=== PATIENT | male | born 1935 | race Hispanic/Latino ===

== ENCOUNTER 2017-04-24 21:34 | Observation (INO) | payer MEDICARE, BC ==
[2017-04-24 22:04] LABS: BASO # 0.1 K/uL (0.0-0.2); BASO % 0.9 % (0.0-2.0); EOS # 0.1 K/uL (0.0-0.7); EOS % 1.7 % (0.0-4.0); HEMATOCRIT 40.4 % (35.0-51.0); LYMPH # 1.3 K/uL (1.0-4.3); LYMPH % 14.8 % (20.0-40.0); MEAN CORPUSCULAR HGB CONC 34.1 g/dL (33.0-37.0); MONO # 1.2 K/uL (0.0-0.8); MONO % 14.3 % (0.0-10.0); NRBC % 0.2 % (0.0-2.0); RED CELL DISTRIBUTION WIDTH 14.4 % (11.5-14.5); WHITE BLOOD COUNT 8.5 K/uL (4.8-10.8)
[2017-04-24 22:12] LABS: CHLORIDE 103 mmol/L (98-107)
[2017-04-24 22:13] LABS: POTASSIUM 3.7 mmol/L (3.6-5.2); SODIUM 141 mmol/L (132-148)
[2017-04-24 22:15] LABS: ALB/GLOB RATIO 1.2 (1.0-2.1); ALKALINE PHOSPHATASE 41 U/L (38-126); AST/SGOT 39 U/L (17-59); BILIRUBIN,TOTAL 0.8 mg/dL (0.2-1.3); BLOOD UREA NITROGEN 28 mg/dL (9-20); CARBON DIOXIDE 26 mmol/L (22-30); GFR AFRICAN-AMERICAN > 60; GLUCOSE,RANDOM 119 mg/dL (75-110)
[2017-04-24 22:16] LABS: ALT/SGPT 38 U/L (21-72); CALCIUM 8.7 mg/dl (8.6-10.4)
[2017-04-24 22:32] VITALS: O2SAT 96
--- NOTE | 2017-04-24 23:09 | C.PDOC ---
History Of Present Illness 81 year old male BIBA and cardioverted in the field for chest pain; he was noted to have a wide complex v-tach. Patient had a prior [place] in 1992 where he was found to be in v-tach and had multiple defibrillator firings; he was followed by Dr. Hernandez afterwards. After shock, patient returned to sinus rhythm and is currently asymptomatic at this moment. Time Seen by Provider: 04/24/17 21:42 Chief Complaint (Nursing): Chest Pain History Per: EMS History/Exam Limitations: no limitations Onset/Duration Of Symptoms: Hrs Current Symptoms Are (Timing): Still Present Modifying Factors: None Exacerbating Factors: None Alleviating Factors: None Recent travel outside of the [place]: No Additional History Per: Patient Past Medical History Reviewed: Historical Data, Nursing Documentation, Vital Signs Vital Signs: Last Vital Signs Temp 98.2 F 04/24/17 21:40 Pulse 70 04/24/17 22:27 Resp 22 04/24/17 22:27 BP 121/63 04/24/17 22:27 Pulse Ox 96 04/24/17 23:13 - Medical History PMH: Anemia, Arthritis, Atrial Fibrillation, CAD, Cardia Arrhythmia, CHF ( multiple hospitalizations, recent 05/2015), COPD, Emphysema, HTN, Hypercholesterolemia, Peripheral Edema Surgical History: Coronary Stent (Failed PCI of the totally occluded RCA), Endoscopy, Pacemaker - [facility] Procedures COLONOSCOPY (06/22/07) DRAINAGE OF RIGHT PLEURAL CAVITY, PERCUTANEOUS APPROACH (10/28/15) ENDO RECTUM POLYPECTOMY (12/27/14) ENDOSC POLYPECTOMY OF LG INTEST (02/07/05) ESOPHAGOGASTRODUODENOSCOPY [EGD] W/CLOSED BIOPSY (12/27/14) INJECT/INFUSE NEC (02/07/05) INSERTION OF INFUSION DEV INTO SUP VENA CAVA, PERC APPROACH (10/28/15) PACKED CELL TRANSFUSION (12/27/14) PEDICLE GRAFT/FLAP NOS (04/10/06) RADICAL EXCIS SKIN LES (04/10/06) THORACENTESIS (05/25/15) Family History: States: Unknown Family Hx - Social History Hx Tobacco Use: No Hx Alcohol Use: No Hx Substance Use: No - Immunization History Hx Tetanus Toxoid Vaccination: No Hx Influenza Vaccination: No Hx Pneumococcal Vaccination: No Review Of Systems Constitutional: Negative for: Fever, Chills Cardiovascular: Positive for: Chest Pain. Negative for: Palpitations Respiratory: Negative for: Shortness of Breath Gastrointestinal: Negative for: Nausea, Vomiting, Abdominal Pain, Diarrhea Neurological: Negative for: Weakness, Numbness Physical Exam - Physical Exam Appears: Non-toxic, No Acute Distress Skin: Normal Color, Warm, Dry Head: Atraumatic, Normacephalic Oral Mucosa: Moist Neck: Normal, Supple Chest: No Tenderness, Other (Defibrillator to left upper chest) Cardiovascular: Rhythm Regular, No Murmur Respiratory: Normal Breath Sounds, No Rales, No Rhonchi, No Wheezing Gastrointestinal/Abdominal: Soft, No Tenderness Neurological/Psych: Oriented x3, Normal Speech, Normal Cognition ED Course And Treatment - Laboratory Results Result Diagrams: 04/24/17 22:00 04/24/17 22:00 Lab Interpretation: Normal (dig 0.9) ECG: Interpreted By Me ECG Rhythm: V Paced ECG Interpretation: Normal O2 Sat by Pulse Oximetry: 96 Pulse Ox Interpretation: Normal - Radiology CXR: Interpreted by Me CXR Interpretation: Yes: Heart Size Progress Note: lopressor 50 PO. EKG, CXR, and urinalysis ordered. Reevaluation Time: 23:11 Reassessment Condition: Improved - Physician Consult Information Outcome Of Conversation: 0: d/w Dr. Luther- JUAN FRANCISCOD- ok to Tele Obs Medical Decision Making Medical Decision Making: recurrent VT not shocked/paced out of it by his implanted defib/pacer, but synchronous shocked by ALS with return of V-paced rhythem Disposition Doctor Will See Patient In The: Hospital Counseled Patient/Family Regarding: Studies Performed, Diagnosis - Disposition Disposition: HOSPITALIZED Disposition Time: 23:12 Condition: GOOD - Clinical Impression Clinical Impression: Chest pain, Ventricular tachycardia - Scribe Statement The provider has reviewed the documentation as recorded by the Michelleibbeverly Ramirez All medical record entries made by the Michelleibbeverly were at my direction and personally dictated by me. I have reviewed the chart and agree that the record accurately reflects my personal performance of the history, physical exam, medical decision making, and the department course for this patient. I have also personally directed, reviewed, and agree with the discharge instructions and disposition.
[2017-04-25] MEDS ORDERED: Digoxin 125 mcg (0.125 mg) Tab PO SCH (00:35)
[2017-04-25 01:18] VITALS: PULSE 70
[2017-04-25 02:47] VITALS: RESP 20
[2017-04-25 06:02] LABS: RBC URINE 5 /hpf (0-3); URINE BACTERIA MANY (<OCC); URINE BILIRUBIN NEGATIVE (NEGATIVE); URINE BLOOD NEGATIVE (NEGATIVE); URINE COLOR Yellow (YELLOW); URINE GLUCOSE (UA) NORMAL (Normal); URINE KETONE NEGATIVE (NEGATIVE); URINE LEUKOCYTE ESTERASE 2+ Leu/uL (Negative); URINE PROTEIN NEGATIVE (NEGATIVE); URINE UROBILINOGEN NORMAL mg/dL (0.2-1.0); WBC URINE 48 /hpf (0-5)
[2017-04-25 06:11] LABS: CHLORIDE 105 mmol/L (98-107); POTASSIUM 3.6 mmol/L (3.6-5.2); SODIUM 143 mmol/L (132-148)
[2017-04-25 06:14] LABS: BLOOD UREA NITROGEN 27 mg/dL (9-20); CARBON DIOXIDE 27 mmol/L (22-30); GFR AFRICAN-AMERICAN > 60
[2017-04-25 06:15] LABS: CALCIUM 8.6 mg/dl (8.6-10.4); GLUCOSE,RANDOM 162 mg/dL (75-110); MAGNESIUM 2.1 mg/dL (1.6-2.3)
[2017-04-25 08:13] VITALS: TEMP 97.6
--- NOTE | 2017-04-25 09:08 | RAD ---
HISTORY: SOB COMPARISON: Chest x-ray performed 11/09/15 TECHNIQUE: Chest, one view. FINDINGS: Examination limited by habitus. LUNGS: Right basilar atelectasis or infiltrate. Mild pulmonary venous congestion. Bilateral hilar prominence. Please note that chest x-ray has limited sensitivity for the detection of pulmonary masses. PLEURA: Small right pleural effusion. No definite pneumothorax . CARDIOVASCULAR: Cardiomegaly. Left-sided AICD. Atherosclerotic calcifications of the aorta. OSSEOUS STRUCTURES: Degenerative changes. VISUALIZED UPPER ABDOMEN: Unremarkable. OTHER FINDINGS: None. IMPRESSION: Right basilar atelectasis/ infiltrate and small right pleural effusion. Mild pulmonary venous congestion. Bilateral hilar prominence. Cardiomegaly. AICD. Study has been marked for PA review.
[2017-04-25] MEDS ORDERED: Sacubitril/Valsartan 24-26mg Tab PO SCH (10:00)
[2017-04-25] MEDS ORDERED: Pantoprazole 40 mg EC Tab PO SCH (10:00)
[2017-04-25] MEDS ORDERED: PITAVASTATIN CALCIUM 4 MG PO SCH ×2 (10:00)
[2017-04-25] MEDS ORDERED: SYMBICORT INH SCH (10:00)
[2017-04-25] MEDS ORDERED: EPLERENONE 25 MG PO SCH ×2 (10:00)
[2017-04-25] MEDS ORDERED: Potassium Chloride 20 mEq ER Tab PO SCH (10:00)
[2017-04-25 16:31] VITALS: BP 121/73
--- NOTE | 2017-04-25 18:08 | CP.PCM.HP ---
History of Present Illness - History of Present Illness History of Present Illness: 81 yo male suddenly felt palpitation, chest pain, shortness of breath and profuse sweating while watching TV. His called 911. The EMS found in a ventricular tachycadia 20 minutes later and cardioverted him. His cardiac rhythm reverted to a paced rhythm, and he became asymptomatic. His TNI's are negative x 2. His CXR did not show any acute infiltrate. He is known to have an ischemic cardiomyopathy, with a Hx of ventricular tachycardia, and atrial flutter. He had a failed PCI of the RCA and a failed cardioversion for an atrial flutter in the past. A new ICD was inserted by Dr Hernandez in 11/2015, and was checked by him last month. Present on Admission - Present on Admission Any Indicators Present on Admission: No Review of Systems - Cardiovascular Cardiovascular: Chest Pain, Diaphoresis, Dyspnea, Palpitations - Respiratory Respiratory: Dyspnea Past Patient History - Infectious Disease Hx of Infectious Diseases: None - Tetanus Immunizations Tetanus Immunization: Unknown - Past Medical History & Family History Past Medical History?: Yes - Past Social History Smoking Status: Former Smoker Alcohol: Occasional Drugs: Denies Home Situation {Lives}: With Family Domestic Violence: Negative - CARDIAC Hx Atrial Fibrillation: Yes Hx Cardia Arrhythmia: Yes Hx Congestive Heart Failure: Yes (multiple hospitalizations.) Hx Hypercholesterolemia: Yes Hx Hypertension: Yes Hx Pacemaker: Yes Hx Peripheral Edema: Yes - PULMONARY Hx Chronic Obstructive Pulmonary Disease (COPD): Yes Hx Emphysema: Yes - NEUROLOGICAL Hx Neurological Disorder: No Hx Dizziness: Yes Hx Syncope: Yes - HEENT Hx HEENT Problems: Yes Hx Glaucoma: Yes - RENAL Hx Chronic Kidney Disease: No - ENDOCRINE/METABOLIC Hx Endocrine Disorders: No - HEMATOLOGICAL/ONCOLOGICAL Hx Anemia: Yes Hx Blood Transfusions: Yes (2014) - INTEGUMENTARY Hx Dermatological Problems: No - MUSCULOSKELETAL/RHEUMATOLOGICAL Hx Falls: No - GASTROINTESTINAL Hx Gastrointestinal Disorders: Yes (Colonic polyps.) - GENITOURINARY/GYNECOLOGICAL Hx Genitourinary Disorders: No - PSYCHIATRIC Hx Substance Use: No - SURGICAL HISTORY Hx Cardiac Catheterization: Yes (2 or 3 times.) Hx Coronary Stent: Yes (Failed PCI of the totally occluded RCA) Other/Comment: Pacemaker. - ANESTHESIA Hx Anesthesia: Yes Hx Anesthesia Reactions: No Hx Malignant Hyperthermia: No Has any member of the family had a problem w/ anesthesia?: No Meds Allergies/Adverse Reactions: Allergies Allergy/AdvReac Type Severity Reaction Status Date / Time No Known Allergies Allergy Verified 10/28/15 17:23 Physical Exam - Constitutional Appears: No Acute Distress - Head Exam Head Exam: NORMAL INSPECTION - Eye Exam Eye Exam: Normal appearance - ENT Exam ENT Exam: Normal Exam - Neck Exam Neck exam: Positive for: Normal Inspection - Respiratory Exam Respiratory Exam: Clear to Auscultation Bilateral, NORMAL BREATHING PATTERN - Cardiovascular Exam Cardiovascular Exam: REGULAR RHYTHM, Systolic Murmur - GI/Abdominal Exam GI & Abdominal Exam: Normal Bowel Sounds, Soft - Rectal Exam Rectal Exam: Deferred - Extremities Exam Extremities exam: Positive for: normal inspection - Back Exam Back exam: NORMAL INSPECTION - Neurological Exam Neurological exam: Alert, CN II-XII Intact, Normal Gait, Oriented x3 - Psychiatric Exam Psychiatric exam: Anxious - Skin Skin Exam: Dry, Intact, Normal Color, Warm Results - Vital Signs Recent Vital Signs: Last Vital Signs Temp 97.6 F 04/25/17 15:00 Pulse 74 04/25/17 15:00 Resp 20 04/25/17 15:00 BP 121/73 04/25/17 15:00 Pulse Ox 96 04/25/17 15:00 - Labs Result Diagrams: 04/24/17 22:00 04/25/17 05:29 Labs: Laboratory Results - last 24 hr 04/25/17 04/25/17 05:29 05:31 Sodium 143 Potassium 3.6 Chloride 105 Carbon Dioxide 27 Anion Gap 15 BUN 27 H Creatinine 1.0 Est GFR ( Amer) > 60 Est GFR (Non-Af Amer) > 60 Random Glucose 162 H Calcium 8.6 Magnesium 2.1 Total Creatine Kinase 31 L CK-MB (Mass) 1.34 Troponin I, Quant 0.0300 Urine Color Yellow Urine Clarity Hazy Urine pH 5.0 Ur Specific Guy 1.018 Urine Protein Negative Urine Glucose (UA) Normal Urine Ketones Negative Urine Blood Negative Urine Nitrate Negative Urine Bilirubin Negative Urine Urobilinogen Normal Ur Leukocyte Esterase 2+ H Urine WBC (Auto) 48 H Urine RBC (Auto) 5 H Ur Squamous Epith Cells 9 H Urine Bacteria Many H Urine Yeast (Budding) Few H Assessment & Plan (1) Ventricular tachycardia Assessment and Plan: Now in a paced rhythm after cardioversion by the EMS.To increase Sotalol to 80 mg PO q 12 h. Status: Acute (2) Chest pain Assessment and Plan: TNI's x2 are normal. Status: Acute (3) Automatic implantable cardiac defibrillator in situ Assessment and Plan: To have [employer] ([employer])check the ICD before discharge home. Status: Acute Decision To Admit - Pt Status Changed To: Hospital Disposition Of: Observation - . Bed Request Type: Telemetry Admitting Physician: Filippo Luther
[2017-04-25 19:41] VITALS: PULSE 90
[2017-04-25] MEDS ORDERED: Fluticasone-Salmeterol 250-50mcg Diskus INH SCH (20:00)
[2017-04-26] MEDS ORDERED: Pantoprazole 40 mg EC Tab PO SCH (10:00)
--- NOTE | 2017-04-28 17:49 | CARD ---
APPROVED REPORT EKG Measurement Heart [id number] <Conclusion> Ventricular-paced rhythm Abnormal ECG
== END 2017-04-25 20:45 | disposition home or self-care (01) ==
LOC: C.ER 21:34 → C.6T 23:13 → C.9E 23:13
PROVIDERS: ADMIT Internal Medicine Cardiovascular Disease; ATTEND Internal Medicine Cardiovascular Disease
DX: R07.89 Other chest pain (principal); I11.0 Hypertensive heart disease with heart failure; I47.2 Ventricular tachycardia; I50.9 Heart failure, unspecified; J44.9 Chronic obstructive pulmonary disease, unspecified; Z87.891 Personal history of nicotine dependence; Z95.810 Presence of automatic (implantable) cardiac defibrillator
CPT/HCPCS: 36415; 71010; 80048; 80053; 80162; 81001; 83735; 83880; 84484; 85025; 93005; 99285; G0378

== ENCOUNTER 2017-05-06 13:00 | Inpatient (IN) | payer MEDICARE, BC ==
[2017-05-06 13:01] VITALS: PULSE 70
--- NOTE | 2017-05-06 14:01 | RAD ---
HISTORY: chest pain COMPARISON: Chest x-ray performed 04/24/17 TECHNIQUE: Chest, one view. FINDINGS: Examination limited by habitus. LUNGS: Bilateral hilar prominence. Small right sided pleural effusion. Right basilar atelectasis/infiltrate. Mild residual pulmonary venous congestion. No definite pneumothorax. CARDIOVASCULAR: Cardiomegaly. Atherosclerotic calcifications of the aortic knob. Left-sided AICD. Evidence of abandoned pacer wires on the right. OSSEOUS STRUCTURES: Degenerative changes. VISUALIZED UPPER ABDOMEN: Unremarkable. OTHER FINDINGS: None. IMPRESSION: Bilateral hilar prominence. Small right sided pleural effusion. Right basilar atelectasis/infiltrate. Mild residual pulmonary venous congestion. Cardiomegaly. Atherosclerotic calcifications of the aortic knob. Left-sided AICD. Evidence of abandoned pacer wires on the right.
[2017-05-06 14:02] LABS: BASO % 0.6 % (0.0-2.0); CHLORIDE 97 mmol/L (98-107); EOS # 0.1 K/uL (0.0-0.7); EOS % 1.3 % (0.0-4.0); HEMATOCRIT 40.1 % (35.0-51.0); LYMPH % 11.2 % (20.0-40.0); MEAN CELL VOLUME 93.8 fL (80.0-94.0); MEAN CORPUSCULAR HEMOGLOBIN 31.7 pg (27.0-31.0); MEAN CORPUSCULAR HGB CONC 33.7 g/dL (33.0-37.0); MEAN PLATELET VOLUME 8.9 fL (7.2-11.7); MONO # 0.8 K/uL (0.0-0.8); POTASSIUM 4.5 mmol/L (3.6-5.2); RED CELL DISTRIBUTION WIDTH 14.1 % (11.5-14.5); SODIUM 140 mmol/L (132-148); WHITE BLOOD COUNT 8.8 K/uL (4.8-10.8)
[2017-05-06 14:05] LABS: ALB/GLOB RATIO 1.3 (1.0-2.1); ALKALINE PHOSPHATASE 47 U/L (38-126); ALT/SGPT 31 U/L (21-72); AST/SGOT 20 U/L (17-59); BILIRUBIN,TOTAL 0.8 mg/dL (0.2-1.3); BLOOD UREA NITROGEN 23 mg/dL (9-20); CARBON DIOXIDE 28 mmol/L (22-30); GFR AFRICAN-AMERICAN > 60; GLUCOSE,RANDOM 123 mg/dL (75-110); TOTAL PROTEIN 6.7 g/dL (6.3-8.3)
--- NOTE | 2017-05-06 14:14 | C.PDOC ---
History Of Present Illness 81 y/o male presents to ED who states his AICD went off a few times over the last couple days. Patient states that prior to these episodes, he wound feel nausea, fluttering in his chest, and then feel the shock. He notes he had prior episodes with similar preceding symptoms with no following shock. Currently, patient without any complaints. Patient notified Dr. Hernandez, who prompted ER visit. Time Seen by Provider: 05/06/17 13:13 Chief Complaint (Nursing): Medical Clearance History Per: Patient History/Exam Limitations: no limitations Onset/Duration Of Symptoms: Days Current Symptoms Are (Timing): Still Present Recent travel outside of the [place]: No Past Medical History Reviewed: Historical Data, Nursing Documentation, Vital Signs Vital Signs: Last Vital Signs Temp 98 F 05/06/17 20:29 Pulse 70 05/06/17 20:29 Resp 20 05/06/17 20:29 BP 121/76 05/06/17 20:29 Pulse Ox 96 05/06/17 20:29 - Medical History PMH: Anemia, Arthritis, Atrial Fibrillation, CAD, Cardia Arrhythmia, CHF, Colonic Polyps, COPD, Emphysema, HTN, Hypercholesterolemia, Peripheral Edema Surgical History: Coronary Stent (x1), Endoscopy, Pacemaker - [facility] Procedures COLONOSCOPY (06/22/07) DRAINAGE OF RIGHT PLEURAL CAVITY, PERCUTANEOUS APPROACH (10/28/15) ENDO RECTUM POLYPECTOMY (12/27/14) ENDOSC POLYPECTOMY OF LG INTEST (02/07/05) ESOPHAGOGASTRODUODENOSCOPY [EGD] W/CLOSED BIOPSY (12/27/14) INJECT/INFUSE NEC (02/07/05) INSERTION OF INFUSION DEV INTO SUP VENA CAVA, PERC APPROACH (10/28/15) PACKED CELL TRANSFUSION (12/27/14) PEDICLE GRAFT/FLAP NOS (04/10/06) RADICAL EXCIS SKIN LES (04/10/06) THORACENTESIS (05/25/15) Family History: States: Unknown Family Hx - Social History Hx Tobacco Use: No Hx Alcohol Use: No Hx Substance Use: No - Immunization History Hx Tetanus Toxoid Vaccination: No Hx Influenza Vaccination: No Hx Pneumococcal Vaccination: No Review Of Systems Except As Marked, All Systems Reviewed And Found Negative. Constitutional: Negative for: Fever, Chills Cardiovascular: Positive for: Chest Pain. Negative for: Palpitations, Orthopnea Respiratory: Negative for: Shortness of Breath, Wheezing Gastrointestinal: Positive for: Nausea. Negative for: Vomiting Skin: Negative for: Rash Neurological: Negative for: Weakness, Numbness, Headache, Dizziness Physical Exam - Physical Exam Appears: Non-toxic, No Acute Distress Skin: Normal Color, Warm, Dry Head: Atraumatic, Normacephalic Oral Mucosa: Moist Chest: Symmetrical Cardiovascular: Rhythm Regular Respiratory: Normal Breath Sounds, No Rales, No Rhonchi, No Wheezing Gastrointestinal/Abdominal: Soft, No Tenderness, No Guarding, No Rebound Back: Normal Inspection Extremity: Normal ROM, Capillary Refill (< 2 sec.) Neurological/Psych: Oriented x3, Normal Speech, Normal Cognition ED Course And Treatment - Laboratory Results Result Diagrams: 05/06/17 13:48 05/06/17 13:48 ECG: Interpreted By Me ECG Rhythm: V Paced Interpretation Of ECG: ventricularly paced at 70 bpm, with PVC's. O2 Sat by Pulse Oximetry: 96 (RA) Pulse Ox Interpretation: Normal Progress Note: EKG, bloodwork, labs ordered and reviewed. Disposition - Disposition Disposition: HOSPITALIZED Disposition Time: 14:40 Condition: FAIR - Clinical Impression Clinical Impression: AICD ELECTRICAL DISCHARGE PALPITATION - Scribe Statement The provider has reviewed the documentation as recorded by the Michelleibbeverly Avila Provider Attestation: All medical record entries made by the Michelleibbeverly were at my direction and personally dictated by me. I have reviewed the chart and agree that the record accurately reflects my personal performance of the history, physical exam, medical decision making, and the department course for this patient. I have also personally directed, reviewed, and agree with the discharge instructions and disposition.
[2017-05-06 14:38] LABS: THYROID STIMULATING HORMONE 1.09 mIU/L (0.46-4.68)
--- NOTE | 2017-05-06 17:57 | CP.PCM.HP ---
History of Present Illness - History of Present Illness History of Present Illness: PGY1 Note for Dr. Ny CC: Feeling a sensation in his chest PMD: Dr. Filippo Luther HPI: Patient is a 81 year old man with a MH of a [employer] and MT complaining of a "weird" sensation in his chest. The incident began today while in the mens room. He states that the sensation is indescribable and feels as if his defibrillator is about to shock him but doesnt. The sensation does not radiate from the chest. No aggravating or alleviating factors noted. Currently he feels fine and the sensation has dissipated. He had a similar even on April 24 which resulted in him being sent to [facility] where he was defibrillator. Patient states the defibrillator has gone off yesterday and Thursday. ROS: * General: Denies fever/chills/ diaphoresis/ weakness/recent travel/sick contacts. Positive for dizziness/lightheadedness/ 5 pounds intentional weight loss * HEENT: Denies MCDER[place]OTT/changes in vision/ changes in hearing * Cardio: Denies CP * Pulm: Denies SOB/cough/ * GI: Denies dysuria/frequency * :Denies N/V/D/C/ pain * MSK: Denies back pain * Derm: Denies rash * Heme: History of a 3 unit blood transfusion in 2004 PMH: * Pacemaker * MT 1992 * BPH PSH * Pacemaker placement * Stent placement x1 in 2010 * Multiple lipoma removals * Cataract removal x2 * Family Hx * Dad=DM * Mom=CVA SH: * Denies tobacco, EtOH, illicit drug use. * Lives with and son. 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 * Independent in his ADLs Meds: * Eloquis 2.5 BID * Dig 0.125 QD * Lasix 20 mg QD * Losarten 25mg QD * Statin 4mg QD * Crestor 20mg QD * Sodalol 160mg BID * Intresto 24/26 QD * Tamsulosin 0.4 QD * Eplerenone 25 QD * Finasteride 25 QD Allergies: NDKA Code: FULL CODE Present on Admission - Present on Admission Any Indicators Present on Admission: No History of DVT/PE: No History of Uncontrolled Diabetes: No Urinary Catheter: No Decubitus Ulcer Present: No History Surgical Site Infection Following: None Review of Systems - Constitutional Constitutional: As Per HPI - EENT Eyes: As Per HPI Ears: As Per HPI Nose/Mouth/Throat: As Per HPI - Cardiovascular Cardiovascular: As Per HPI - Respiratory Respiratory: As Per HPI - Gastrointestinal Gastrointestinal: As Per HPI - Genitourinary Genitourinary: As Per HPI - Reproductive: Male Reproductive:Male: As Per HPI - Musculoskeletal Musculoskeletal: As Per HPI - Integumentary Integumentary: As Per HPI - Neurological Neurological: As Per HPI - Psychiatric Psychiatric: As Per HPI - Endocrine Endocrine: As Per HPI - Hematologic/Lymphatic Hematologic: As Per HPI Past Patient History - Infectious Disease Hx of Infectious Diseases: None - Tetanus Immunizations Tetanus Immunization: Unknown - Past Medical History & Family History Past Medical History?: Yes - Past Social History Smoking Status: Former Smoker - CARDIAC Hx Atrial Fibrillation: Yes Hx Cardia Arrhythmia: Yes Hx Congestive Heart Failure: Yes Hx Hypercholesterolemia: Yes Hx Hypertension: Yes Hx Pacemaker: Yes Hx Peripheral Edema: Yes - PULMONARY Hx Chronic Obstructive Pulmonary Disease (COPD): Yes Hx Emphysema: Yes - NEUROLOGICAL Hx Neurological Disorder: Yes Hx Dizziness: Yes Hx Syncope: Yes - HEENT Hx HEENT Problems: Yes Hx Glaucoma: Yes - ENDOCRINE/METABOLIC Hx Endocrine Disorders: No - HEMATOLOGICAL/ONCOLOGICAL Hx Anemia: Yes - INTEGUMENTARY Hx Dermatological Problems: No - MUSCULOSKELETAL/RHEUMATOLOGICAL Hx Arthritis: Yes - GASTROINTESTINAL Hx Gastrointestinal Disorders: Yes - GENITOURINARY/GYNECOLOGICAL Hx Genitourinary Disorders: No - PSYCHIATRIC Hx Substance Use: No - SURGICAL HISTORY Hx Coronary Stent: Yes (x1) - ANESTHESIA Hx Anesthesia: Yes Hx Anesthesia Reactions: No Hx Malignant Hyperthermia: No Meds Allergies/Adverse Reactions: Allergies Allergy/AdvReac Type Severity Reaction Status Date / Time No Known Allergies Allergy Verified 10/28/15 17:23 Physical Exam - Constitutional Appears: Well, Non-toxic, No Acute Distress - Head Exam Head Exam: ATRAUMATIC, NORMAL INSPECTION, NORMOCEPHALIC - Eye Exam Eye Exam: EOMI - ENT Exam ENT Exam: Mucous Membranes Moist - Respiratory Exam Respiratory Exam: Decreased Breath Sounds (bilaterally), NORMAL BREATHING PATTERN. absent: Rales, Rhonchi, Wheezes, Stridor - Cardiovascular Exam Cardiovascular Exam: REGULAR RHYTHM, RRR. absent: Bradycardia, Tachycardia, Gallop, Rubs, Systolic Murmur Additional comments: diminished heart sounds - GI/Abdominal Exam GI & Abdominal Exam: Normal Bowel Sounds, Soft. absent: Distended, Tenderness - Extremities Exam Extremities exam: Negative for: joint swelling, pedal edema, tenderness - Neurological Exam Neurological exam: Alert, Oriented x3 - Psychiatric Exam Psychiatric exam: Normal Affect, Normal Mood - Skin Skin Exam: Dry, Intact, Normal Color, Warm Results - Vital Signs Recent Vital Signs: Last Vital Signs Temp 97.5 F L 05/06/17 17:28 Pulse 69 05/06/17 17:28 Resp 22 05/06/17 17:28 BP 110/54 L 05/06/17 17:28 Pulse Ox 96 05/06/17 17:28 - Labs Result Diagrams: 05/06/17 13:48 05/06/17 13:48 Assessment & Plan - Assessment and Plan (Free Text) Assessment: Possible Arrythmia * Cardio (Patrice) - F/U reccs * Tele * Interrogate pacemaker * Monitor electrolytes CAD * Cardio (Patrice) - F/U reccs * F/U Echo * GERMAINE * First trop negative * No evidence of ischemia on first EKG * Eloquis 2.5 BID * Dig 0.125 QD * Lasix 20 mg QD * Losarten 25mg QD * Crestor 20mg QD * Sodalol 160mg BID * Entresto 24/26 QD * Eplerenone 25 QD BPH * Finasteride 25 QD * Tamsulosin 0.4 QD PPX * No DVT PPX needed because on Eliquis * Pepcid 20 PO BID - Date & Time Date: 05/06/17 Time: 18:00 Decision To Admit - Pt Status Changed To: Hospital Disposition Of: Inpatient - Admit Certification Admit to Inpatient:: After my assessment, the patient will require hospitalization for at least two midnights. This is because of the severity of symptoms shown, intensity of services needed, and/or the medical risk in this patient being treated as an outpatient. - InPatient: Physician Admission Certification:: . - . Bed Request Type: Telemetry Admitting Physician: Eldon Ny
[2017-05-06] MEDS ORDERED: Digoxin 125 mcg (0.125 mg) Tab PO SCH (18:35)
[2017-05-06] MEDS: Enoxaparin 60 mg Syringe SC SCH (22:37)
--- NOTE | 2017-05-06 23:13 | CP.PCM.CON ---
History of Present Illness - History of Present Illness History of Present Illness: Patient seen and evaluated C/O uneasy feeling in chest Received a shock from AICD yesterday H/O if ischemic CMP and A Fib For cath tomorrow D/W Patient Orders written CC: Feeling a sensation in his chest HPI: Patient is a 81 year old man with a MH of a [employer] and [place] complaining of a "weird" sensation in his chest. The incident began today while in the mens room. He states that the sensation is indescribable and feels as if his defibrillator is about to shock him but doesnt. The sensation does not radiate from the chest. No aggravating or alleviating factors noted. Currently he feels fine and the sensation has dissipated. He had a similar even on April 24 which resulted in him being sent to [facility] where he was defibrillator. Patient states the defibrillator has gone off yesterday and Thursday. ROS: * General: Denies fever/chills/ diaphoresis/ weakness/recent travel/sick contacts. Positive for dizziness/lightheadedness/ 5 pounds intentional weight loss * HEENT: Denies M[place]OTT/changes in vision/ changes in hearing * Cardio: Denies CP * Pulm: Denies SOB/cough/ * GI: Denies dysuria/frequency * :Denies N/V/D/C/ pain * MSK: Denies back pain * Derm: Denies rash * Heme: History of a 3 unit blood transfusion in 2004 PMH: * Pacemaker * [place] 1992 * BPH PSH * Pacemaker placement * Stent placement x1 in 2010 * Multiple lipoma removals * Cataract removal x2 * Family Hx * Dad=DM * Mom=CVA SH: * Denies tobacco, EtOH, illicit drug use. * Lives with and son. 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 * Independent in his ADLs Meds: * Eloquis 2.5 BID * Dig 0.125 QD * Lasix 20 mg QD * Losarten 25mg QD * Statin 4mg QD * Crestor 20mg QD * Sodalol 160mg BID * Intresto 24/26 QD * Tamsulosin 0.4 QD * Eplerenone 25 QD * Finasteride 25 QD Allergies: NDKA Code: FULL CODE Physical Exam - Constitutional Appears: Well, Non-toxic, No Acute Distress - Head Exam Head Exam: ATRAUMATIC, NORMAL INSPECTION, NORMOCEPHALIC - Eye Exam Eye Exam: EOMI - ENT Exam ENT Exam: Mucous Membranes Moist - Respiratory Exam Respiratory Exam: Decreased Breath Sounds (bilaterally), NORMAL BREATHING PATTERN. absent: Rales, Rhonchi, Wheezes, Stridor - Cardiovascular Exam Cardiovascular Exam: REGULAR RHYTHM, RRR. absent: Bradycardia, Tachycardia, Gallop, Rubs, Systolic Murmur Additional comments: diminished heart sounds - GI/Abdominal Exam GI & Abdominal Exam: Normal Bowel Sounds, Soft. absent: Distended, Tenderness - Extremities Exam Extremities exam: Negative for: joint swelling, pedal edema, tenderness - Neurological Exam Neurological exam: Alert, Oriented x3 - Psychiatric Exam Psychiatric exam: Normal Affect, Normal Mood - Skin Skin Exam: Dry, Intact, Normal Color, Warm Past Patient History - Infectious Disease Hx of Infectious Diseases: None - Tetanus Immunizations Tetanus Immunization: Unknown - Past Medical History & Family History Past Medical History?: Yes - Past Social History Smoking Status: Former Smoker - CARDIAC Hx Atrial Fibrillation: Yes Hx Cardia Arrhythmia: Yes Hx Congestive Heart Failure: Yes Hx Hypercholesterolemia: Yes Hx Hypertension: Yes Hx Pacemaker: Yes Hx Peripheral Edema: Yes - PULMONARY Hx Chronic Obstructive Pulmonary Disease (COPD): Yes Hx Emphysema: Yes - NEUROLOGICAL Hx Neurological Disorder: Yes Hx Dizziness: Yes Hx Syncope: Yes - HEENT Hx HEENT Problems: Yes Hx Glaucoma: Yes - ENDOCRINE/METABOLIC Hx Endocrine Disorders: No - HEMATOLOGICAL/ONCOLOGICAL Hx Anemia: Yes - INTEGUMENTARY Hx Dermatological Problems: No - MUSCULOSKELETAL/RHEUMATOLOGICAL Hx Arthritis: Yes - GASTROINTESTINAL Hx Gastrointestinal Disorders: Yes - GENITOURINARY/GYNECOLOGICAL Hx Genitourinary Disorders: No - PSYCHIATRIC Hx Substance Use: No - SURGICAL HISTORY Hx Coronary Stent: Yes (x1) - ANESTHESIA Hx Anesthesia: Yes Hx Anesthesia Reactions: No Hx Malignant Hyperthermia: No Meds Allergies/Adverse Reactions: Allergies Allergy/AdvReac Type Severity Reaction Status Date / Time No Known Allergies Allergy Verified 10/28/15 17:23 - Medications Medications: Current Medications Acetaminophen (Tylenol 325mg Tab) 650 mg PO Q6 PRN PRN Reason: Fever >100.4 F Alprazolam (Xanax) 0.25 mg PO TID PRN PRN Reason: Anxiety Stop: 05/13/17 20:21 Aspirin (Ecotrin) 81 mg PO DAILY [facility] Bisoprolol Fumarate (Zebeta) 5 mg PO Q12 [facility] Last Admin: 05/06/17 22:38 Dose: 5 mg Enoxaparin Sodium (Lovenox) 60 mg SC Q12 [facility] Last Admin: 05/06/17 22:37 Dose: 60 mg Famotidine (Pepcid) 20 mg PO DAILY [facility] Finasteride (Proscar) 5 mg PO DAILY [facility] Finasteride (Proscar) 5 mg PO DAILY [facility] Last Admin: 05/06/17 20:23 Dose: 5 mg Furosemide (Lasix) 20 mg PO BID [facility] Ondansetron HCl (Zofran Inj) 4 mg IVP Q6 PRN PRN Reason: Nausea/Vomiting Pneumococcal Polyvalent Vaccine (Pneumovax 23 Vaccine) 0.5 ml IM .ONCE ONE Stop: 05/08/17 19:26 Rosuvastatin Calcium (Crestor) 20 mg PO HS [facility] Last Admin: 05/06/17 22:38 Dose: 20 mg Sacubitril/Valsartan (Entresto 24 Mg-26 Mg) 1 tab PO DAILY [facility] Sotalol HCl (Betapace) 160 mg PO BID [facility] Last Admin: 05/06/17 20:24 Dose: 160 mg Spironolactone (Aldactone) 25 mg PO DAILY [facility] Tamsulosin HCl (Flomax) 0.4 mg PO DAILY [facility] Zolpidem Tartrate (Ambien) 5 mg PO HS PRN PRN Reason: Insomnia Last Admin: 05/06/17 22:38 Dose: 5 mg Results - Vital Signs Recent Vital Signs: Last Vital Signs Temp 97.7 F 05/06/17 22:35 Pulse 70 05/06/17 22:35 Resp 20 05/06/17 22:35 BP 115/72 05/06/17 22:35 Pulse Ox 96 05/06/17 22:35 - Labs Result Diagrams: 05/08/17 06:19 05/08/17 06:19 Assessment & Plan - Assessment and Plan (Free Text) Assessment: Possible Arrythmia * Will interrogate BiVAICD * Tele * Monitor electrolytes CAD * Cardio (Patrice) - F/U reccs * For cath tomorrow * Eloquis 2.5 BID on Hold * Dig 0.125 QD * Lasix 20 mg QD * Losarten 25mg QD * Crestor 20mg QD * Sotalol 160mg BID * Entresto QD * Eplerenone 25 QD BPH * Finasteride 25 QD * Tamsulosin 0.4 QD PPX * No DVT PPX needed because on Eliquis * Pepcid 20 PO BID
[2017-05-07 05:56] LABS: BASO % 0.5 % (0.0-2.0); EOS # 0.2 K/uL (0.0-0.7); EOS % 1.8 % (0.0-4.0); HEMATOCRIT 38.9 % (35.0-51.0); LYMPH # 1.2 K/uL (1.0-4.3); LYMPH % 14.1 % (20.0-40.0); MEAN CELL VOLUME 94.2 fL (80.0-94.0); MEAN CORPUSCULAR HEMOGLOBIN 31.6 pg (27.0-31.0); MEAN CORPUSCULAR HGB CONC 33.6 g/dL (33.0-37.0); MONO # 0.9 K/uL (0.0-0.8); MONO % 10.6 % (0.0-10.0); NRBC % 0.1 % (0.0-2.0); RED CELL DISTRIBUTION WIDTH 14.3 % (11.5-14.5); WHITE BLOOD COUNT 8.5 K/uL (4.8-10.8)
[2017-05-07 06:02] LABS: INR 1.2
[2017-05-07 06:04] LABS: RBC URINE 7 /hpf (0-3); URINE BACTERIA OCC (<OCC); URINE BILIRUBIN NEGATIVE (NEGATIVE); URINE BLOOD NEGATIVE (NEGATIVE); URINE COLOR Yellow (YELLOW); URINE GLUCOSE (UA) NORMAL (Normal); URINE KETONE NEGATIVE (NEGATIVE); URINE LEUKOCYTE ESTERASE 2+ Leu/uL (Negative); URINE PROTEIN NEGATIVE (NEGATIVE); URINE UROBILINOGEN NORMAL mg/dL (0.2-1.0); WBC URINE 39 /hpf (0-5)
[2017-05-07 06:05] LABS: CHLORIDE 100 mmol/L (98-107); POTASSIUM 4.1 mmol/L (3.6-5.2); SODIUM 142 mmol/L (132-148)
[2017-05-07 06:07] LABS: BILIRUBIN,TOTAL 0.6 mg/dL (0.2-1.3); GFR AFRICAN-AMERICAN > 60
[2017-05-07 06:08] LABS: ALB/GLOB RATIO 1.2 (1.0-2.1); ALKALINE PHOSPHATASE 44 U/L (38-126); ALT/SGPT 33 U/L (21-72); AST/SGOT 16 U/L (17-59); BLOOD UREA NITROGEN 24 mg/dL (9-20); CALCIUM 8.7 mg/dl (8.6-10.4); CARBON DIOXIDE 29 mmol/L (22-30); GLUCOSE,RANDOM 97 mg/dL (75-110); TOTAL PROTEIN 6.3 g/dL (6.3-8.3)
[2017-05-07] MEDS ORDERED: Midazolam 2 MG/2 ML VIAL ONE (07:37)
[2017-05-07] MEDS ORDERED: Lidocaine 2% Inj (20ml) ONE (07:49)
[2017-05-07] MEDS ORDERED: Iodixanol 320 MG/ML 100 ML BOTTLE IV ONE (07:52)
[2017-05-07] MEDS ORDERED: Phenylephrine 10 mg/ml Inj ONE (08:53)
[2017-05-07] MEDS ORDERED: Sacubitril/Valsartan 24-26mg Tab PO SCH (10:00)
[2017-05-07] MEDS: Sacubitril/Valsartan 24-26mg Tab PO SCH (15:23)
[2017-05-07] MEDS: Enoxaparin 60 mg Syringe SC SCH ×2 (15:25→22:09)
--- NOTE | 2017-05-07 15:25 | CP.PCM.PN ---
Subjective - Date & Time of Evaluation Date of Evaluation: 05/07/17 Time of Evaluation: 14:00 - Subjective Subjective: Patient was seen and examined in ICU. Denies any chest pain, palpitation or shortness of breath. Objective - Vital Signs/Intake and Output Vital Signs (last 24 hours): Temp Pulse Resp BP Pulse Ox 98.0 F 70 17 115/54 L 96 05/07/17 04:00 05/07/17 10:30 05/07/17 10:30 05/07/17 10:21 05/07/17 10:30 Intake and Output: 05/07/17 05/07/17 06:59 18:59 Intake Total 300 467.2 Output Total 400 500 Balance -100 -32.8 - Medications Medications: Current Medications Acetaminophen (Tylenol 325mg Tab) 650 mg PO Q6 PRN PRN Reason: Fever >100.4 F Alprazolam (Xanax) 0.25 mg PO TID PRN PRN Reason: Anxiety Stop: 05/13/17 20:21 Aspirin (Ecotrin) 81 mg PO DAILY [facility] Bisoprolol Fumarate (Zebeta) 5 mg PO Q12 [facility] Last Admin: 05/06/17 22:38 Dose: 5 mg Enoxaparin Sodium (Lovenox) 60 mg SC Q12 [facility] Last Admin: 05/06/17 22:37 Dose: 60 mg Famotidine (Pepcid) 20 mg PO DAILY [facility] Finasteride (Proscar) 5 mg PO DAILY [facility] Finasteride (Proscar) 5 mg PO DAILY [facility] Last Admin: 05/06/17 20:23 Dose: 5 mg Furosemide (Lasix) 20 mg PO BID [facility] Last Admin: 05/07/17 15:21 Dose: Not Given Ondansetron HCl (Zofran Inj) 4 mg IVP Q6 PRN PRN Reason: Nausea/Vomiting Pneumococcal Polyvalent Vaccine (Pneumovax 23 Vaccine) 0.5 ml IM .ONCE ONE Stop: 05/08/17 19:26 Rosuvastatin Calcium (Crestor) 20 mg PO HS [facility] Last Admin: 05/06/17 22:38 Dose: 20 mg Sacubitril/Valsartan (Entresto 24 Mg-26 Mg) 1 tab PO DAILY [facility] Last Admin: 05/07/17 15:23 Dose: Not Given Sotalol HCl (Betapace) 160 mg PO BID [facility] Last Admin: 05/07/17 15:20 Dose: Not Given Spironolactone (Aldactone) 25 mg PO DAILY [facility] Last Admin: 05/07/17 15:21 Dose: Not Given Tamsulosin HCl (Flomax) 0.4 mg PO DAILY [facility] Zolpidem Tartrate (Ambien) 5 mg PO HS PRN PRN Reason: Insomnia Last Admin: 05/06/17 22:38 Dose: 5 mg - Labs Labs: 05/07/17 05:47 05/07/17 05:47 PT 13.9 SECONDS (9.7-12.2) H 05/07/17 05:47 INR 1.2 05/07/17 05:47 APTT 27 SECONDS (21-34) 05/07/17 05:47 - Head Exam Head Exam: ATRAUMATIC, NORMOCEPHALIC - Eye Exam Eye Exam: Normal appearance - ENT Exam ENT Exam: Mucous Membranes Moist - Neck Exam Neck Exam: Normal Inspection - Respiratory Exam Respiratory Exam: Clear to Ausculation Bilateral - Cardiovascular Exam Cardiovascular Exam: REGULAR RHYTHM, +S1, +S2 - Extremities Exam Extremities Exam: absent: Pedal Edema - Neurological Exam Neurological Exam: Alert, Awake Assessment and Plan (1) Arrhythmia Assessment & Plan: Patient possibly received a shock from AICD today earlier. Patient had cardiac cath today. Became hypotensive. Was transferred to ICU. Continue management as per ICU. Status: Acute (2) Automatic implantable cardiac defibrillator in situ Assessment & Plan: AICD to be checked today. Status: Acute (3) Atrial fibrillation Assessment & Plan: Continue anticoagulation. Currently patient is rate controlled.. Status: Chronic (4) Coronary artery disease Assessment & Plan: Continue current medical management. Status: Acute
[2017-05-07] MEDS ORDERED: Digoxin 125 mcg (0.125 mg) Tab PO SCH (18:00)
--- NOTE | 2017-05-07 18:29 | CP.PCM.CON ---
<YamilethJignesh kan Brenda - Last Filed: 05/07/17 18:12> History of Present Illness - History of Present Illness History of Present Illness: Patient is a 81 year old male with a PMHx of ichemic cardiomyopathy, AFib, who presented to the ED on 05/06 because he received a shock from his AICD. Today patient was s/p cardiac cath with Dr Ibrahim and while in the medical laboratory manager had a precipitous drop in BP with syncopal episode. Patient is now in ICU for monitoring. PMH: * Pacemaker * [place] 1992 * BPH PSH * Pacemaker placement * Stent placement x1 in 2010 * Multiple lipoma removals * Cataract removal x2 * Family Hx * Dad=DM * Mom=CVA SH: * Denies tobacco, EtOH, illicit drug use. * Lives with and son. 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 * Independent in his ADLs Home Meds: * Eloquis 2.5 BID * Dig 0.125 QD * Lasix 20 mg QD * Losarten 25mg QD * Statin 4mg QD * Crestor 20mg QD * Sodalol 160mg BID * Intresto / QD * Tamsulosin 0.4 QD * Eplerenone 25 QD * Finasteride 25 QD Review of Systems - Constitutional Constitutional: absent: Chills, Fever - Cardiovascular Cardiovascular: absent: Chest Pain, Diaphoresis - Respiratory Respiratory: absent: Cough, Dyspnea, Wheezing - Gastrointestinal Gastrointestinal: absent: Abdominal Pain, Diarrhea - Genitourinary Genitourinary: absent: Dysuria Past Patient History - Infectious Disease Hx of Infectious Diseases: None - Tetanus Immunizations Tetanus Immunization: Unknown - Past Medical History & Family History Past Medical History?: Yes - Past Social History Smoking Status: Former Smoker - CARDIAC Hx Atrial Fibrillation: Yes Hx Cardia Arrhythmia: Yes Hx Congestive Heart Failure: Yes Hx Hypercholesterolemia: Yes Hx Hypertension: Yes Hx Pacemaker: Yes Hx Peripheral Edema: Yes - PULMONARY Hx Chronic Obstructive Pulmonary Disease (COPD): Yes Hx Emphysema: Yes - NEUROLOGICAL Hx Neurological Disorder: Yes Hx Dizziness: Yes Hx Syncope: Yes - HEENT Hx HEENT Problems: Yes Hx Glaucoma: Yes - ENDOCRINE/METABOLIC Hx Endocrine Disorders: No - HEMATOLOGICAL/ONCOLOGICAL Hx Anemia: Yes - INTEGUMENTARY Hx Dermatological Problems: No - MUSCULOSKELETAL/RHEUMATOLOGICAL Hx Arthritis: Yes - GASTROINTESTINAL Hx Gastrointestinal Disorders: Yes - GENITOURINARY/GYNECOLOGICAL Hx Genitourinary Disorders: No - PSYCHIATRIC Hx Substance Use: No - SURGICAL HISTORY Hx Coronary Stent: Yes (x1) - ANESTHESIA Hx Anesthesia: Yes Hx Anesthesia Reactions: No Hx Malignant Hyperthermia: No Meds Allergies/Adverse Reactions: Allergies Allergy/AdvReac Type Severity Reaction Status Date / Time No Known Allergies Allergy Verified 10/28/15 17:23 - Medications Medications: Current Medications Acetaminophen (Tylenol 325mg Tab) 650 mg PO Q6 PRN PRN Reason: Fever >100.4 F Alprazolam (Xanax) 0.25 mg PO TID PRN PRN Reason: Anxiety Stop: 05/13/17 20:21 Aspirin (Ecotrin) 81 mg PO DAILY [facility] Last Admin: 05/07/17 17:05 Dose: 81 mg Bisoprolol Fumarate (Zebeta) 5 mg PO Q12 [facility] Last Admin: 05/07/17 15:26 Dose: Not Given Enoxaparin Sodium (Lovenox) 60 mg SC Q12 [facility] Last Admin: 05/07/17 15:25 Dose: Not Given Famotidine (Pepcid) 20 mg PO DAILY [facility] Last Admin: 05/07/17 17:05 Dose: 20 mg Finasteride (Proscar) 5 mg PO DAILY [facility] Last Admin: 05/07/17 15:26 Dose: Not Given Finasteride (Proscar) 5 mg PO DAILY [facility] Last Admin: 05/07/17 15:27 Dose: Not Given Furosemide (Lasix) 20 mg PO BID [facility] Last Admin: 05/07/17 15:21 Dose: Not Given Ondansetron HCl (Zofran Inj) 4 mg IVP Q6 PRN PRN Reason: Nausea/Vomiting Pneumococcal Polyvalent Vaccine (Pneumovax 23 Vaccine) 0.5 ml IM .ONCE ONE Stop: 05/08/17 19:26 Rosuvastatin Calcium (Crestor) 20 mg PO HS [facility] Last Admin: 05/06/17 22:38 Dose: 20 mg Sacubitril/Valsartan (Entresto 24 Mg-26 Mg) 1 tab PO DAILY [facility] Last Admin: 05/07/17 15:23 Dose: Not Given Sotalol HCl (Betapace) 160 mg PO BID [facility] Last Admin: 05/07/17 15:20 Dose: Not Given Spironolactone (Aldactone) 25 mg PO DAILY [facility] Last Admin: 05/07/17 15:21 Dose: Not Given Tamsulosin HCl (Flomax) 0.4 mg PO DAILY [facility] Last Admin: 05/07/17 17:05 Dose: 0.4 mg Zolpidem Tartrate (Ambien) 5 mg PO HS PRN PRN Reason: Insomnia Last Admin: 05/06/17 22:38 Dose: 5 mg Physical Exam - Constitutional Appears: Well - Head Exam Head Exam: ATRAUMATIC - Eye Exam Eye Exam: EOMI - ENT Exam ENT Exam: Mucous Membranes Moist - Respiratory Exam Respiratory Exam: Clear to Auscultation Bilateral, NORMAL BREATHING PATTERN - Cardiovascular Exam Cardiovascular Exam: REGULAR RHYTHM, +S1, +S2 - GI/Abdominal Exam GI & Abdominal Exam: Normal Bowel Sounds, Soft. absent: Tenderness - Extremities Exam Extremities exam: Positive for: normal inspection, pedal pulses present. Negative for: pedal edema - Skin Skin Exam: Dry, Intact, Normal Color, Warm Results - Vital Signs Recent Vital Signs: Last Vital Signs Temp 98.0 F 05/07/17 04:00 Pulse 70 05/07/17 10:30 Resp 17 05/07/17 10:30 BP 115/54 L 05/07/17 10:21 Pulse Ox 96 05/07/17 10:30 - Labs Result Diagrams: 05/07/17 05:47 05/07/17 05:47 Labs: Laboratory Results - last 24 hr 05/06/17 05/07/17 05/07/17 23:03 05:47 05:47 WBC 8.5 RBC 4.13 L Hgb 13.1 Hct 38.9 MCV 94.2 H MCH 31.6 H MCHC 33.6 RDW 14.3 Plt Count 129 L D MPV 9.0 Neut % (Auto) 73.0 Lymph % (Auto) 14.1 L [place] % (Auto) 10.6 H Eos % (Auto) 1.8 Baso % (Auto) 0.5 Neut # 6.2 Lymph # 1.2 [place] # 0.9 H Eos # 0.2 Baso # 0.0 PT INR APTT Sodium 142 Potassium 4.1 Chloride 100 Carbon Dioxide 29 Anion Gap 17 BUN 24 H Creatinine 1.0 Est GFR ( Amer) > 60 Est GFR (Non-Af Amer) > 60 Random Glucose 97 Hemoglobin A1c Calcium 8.7 Total Bilirubin 0.6 AST 16 L ALT 33 Alkaline Phosphatase 44 Total Creatine Kinase 26 L 22 L CK-MB (Mass) 0.53 0.48 Troponin I, Quant < 0.0120 < 0.0120 Total Protein 6.3 Albumin 3.4 L Globulin 2.9 Albumin/Globulin Ratio 1.2 Urine Color Urine Clarity Urine pH Ur Specific [place] Urine Protein Urine Glucose (UA) Urine Ketones Urine Blood Urine Nitrate Urine Bilirubin Urine Urobilinogen Ur Leukocyte Esterase Urine WBC (Auto) Urine RBC (Auto) Ur Squamous Epith Cells Amorphous Sediment Urine Bacteria 05/07/17 05/07/17 05/07/17 05:47 05:47 05:48 WBC RBC Hgb Hct MCV MCH MCHC RDW Plt Count MPV Neut % (Auto) Lymph % (Auto) [place] % (Auto) Eos % (Auto) Baso % (Auto) Neut # Lymph # [place] # Eos # Baso # PT 13.9 H INR 1.2 APTT 27 Sodium Potassium Chloride Carbon Dioxide Anion Gap BUN Creatinine Est GFR ( Amer) Est GFR (Non-Af Amer) Random Glucose Hemoglobin A1c 6.2 Calcium Total Bilirubin AST ALT Alkaline Phosphatase Total Creatine Kinase CK-MB (Mass) Troponin I, Quant Total Protein Albumin Globulin Albumin/Globulin Ratio Urine Color Yellow Urine Clarity Hazy Urine pH 5.0 Ur Specific [place] 1.018 Urine Protein Negative Urine Glucose (UA) Normal Urine Ketones Negative Urine Blood Negative Urine Nitrate Negative Urine Bilirubin Negative Urine Urobilinogen Normal Ur Leukocyte Esterase 2+ H Urine WBC (Auto) 39 H Urine RBC (Auto) 7 H Ur Squamous Epith Cells 3 Amorphous Sediment Few H Urine Bacteria Occ H Assessment & Plan - Assessment and Plan (Free Text) Assessment: Neuro: - zolpidem 5mg po hs prn - alprazolam 0.25mg po tid prn - ondansetron 4mg iv q6 prn Pulmonary: - breathing on room air CV: Hx of ischemic cardiomyopathy, AFib, NH, AICD - monitor BP - aspirin 81mg po daily - bisprolol 5mg po q12 - enoxaparin 60mg sc q12 - furosemide 20mg po bid - rosuvastatin 20mg po hs - sacubitril/valsartan 24mg/26mg 1 tab po daily - sotalol 160mg po bid - spironolactone 25mg po daily Endocrine: GI: - famotidine 20mg po daily Heme: - H/H wnl Renal: Hx of BPH - BUN/Cr 24/1.0 - tamsulosin 0.4mg po daily MSK: ID: - clinically asymptomatic - WBC normal value - afebrile - UA: (+) leukocyte esterase, (+) wbc, (+) rbc, (+) bacteria Prophylaxis: - DVT: enoxaparin 60mg sc q12 - GI: famotidine 20mg po daily - Diet: heart healthy <Ruben Hartley - Last Filed: 05/08/17 01:52> Meds - Medications Medications: Current Medications Acetaminophen (Tylenol 325mg Tab) 650 mg PO Q6 PRN PRN Reason: Fever >100.4 F Alprazolam (Xanax) 0.25 mg PO TID PRN PRN Reason: Anxiety Stop: 05/13/17 20:21 Last Admin: 05/07/17 19:54 Dose: 0.25 mg Aspirin (Ecotrin) 81 mg PO DAILY [facility] Last Admin: 05/07/17 17:05 Dose: 81 mg Bisoprolol Fumarate (Zebeta) 5 mg PO Q12 [facility] Last Admin: 05/07/17 22:10 Dose: Not Given Enoxaparin Sodium (Lovenox) 60 mg SC Q12 [facility] Last Admin: 05/07/17 22:09 Dose: 60 mg Famotidine (Pepcid) 20 mg PO DAILY [facility] Last Admin: 05/07/17 17:05 Dose: 20 mg Finasteride (Proscar) 5 mg PO DAILY [facility] Last Admin: 05/07/17 15:26 Dose: Not Given Finasteride (Proscar) 5 mg PO DAILY [facility] Last Admin: 05/07/17 15:27 Dose: Not Given Furosemide (Lasix) 20 mg PO BID [facility] Last Admin: 05/07/17 15:21 Dose: Not Given Ondansetron HCl (Zofran Inj) 4 mg IVP Q6 PRN PRN Reason: Nausea/Vomiting Pneumococcal Polyvalent Vaccine (Pneumovax 23 Vaccine) 0.5 ml IM .ONCE ONE Stop: 05/08/17 19:26 Rosuvastatin Calcium (Crestor) 20 mg PO HS [facility] Last Admin: 05/07/17 22:11 Dose: 20 mg Sacubitril/Valsartan (Entresto 24 Mg-26 Mg) 1 tab PO DAILY [facility] Last Admin: 05/07/17 15:23 Dose: Not Given Sotalol HCl (Betapace) 160 mg PO BID [facility] Last Admin: 05/07/17 19:28 Dose: Not Given Spironolactone (Aldactone) 25 mg PO DAILY [facility] Last Admin: 05/07/17 15:21 Dose: Not Given Tamsulosin HCl (Flomax) 0.4 mg PO DAILY [facility] Last Admin: 05/07/17 17:05 Dose: 0.4 mg Zolpidem Tartrate (Ambien) 5 mg PO HS PRN PRN Reason: Insomnia Last Admin: 05/07/17 23:02 Dose: 5 mg Results - Vital Signs Recent Vital Signs: Last Vital Signs Temp 97.9 F 05/08/17 00:00 Pulse 71 05/08/17 01:30 Resp 19 05/08/17 01:30 BP 113/52 L 05/08/17 00:50 Pulse Ox 95 05/08/17 01:30 - Labs Result Diagrams: 05/07/17 05:47 05/07/17 05:47 Labs: Laboratory Results - last 24 hr 05/07/17 05/07/17 05/07/17 05:47 05:47 05:47 WBC 8.5 RBC 4.13 L Hgb 13.1 Hct 38.9 MCV 94.2 H MCH 31.6 H MCHC 33.6 RDW 14.3 Plt Count 129 L D MPV 9.0 Neut % (Auto) 73.0 Lymph % (Auto) 14.1 L [place] % (Auto) 10.6 H Eos % (Auto) 1.8 Baso % (Auto) 0.5 Neut # 6.2 Lymph # 1.2 [place] # 0.9 H Eos # 0.2 Baso # 0.0 PT INR APTT Sodium 142 Potassium 4.1 Chloride 100 Carbon Dioxide 29 Anion Gap 17 BUN 24 H Creatinine 1.0 Est GFR ( Amer) > 60 Est GFR (Non-Af Amer) > 60 Random Glucose 97 Hemoglobin A1c 6.2 Calcium 8.7 Total Bilirubin 0.6 AST 16 L ALT 33 Alkaline Phosphatase 44 Total Creatine Kinase 22 L CK-MB (Mass) 0.48 Troponin I, Quant < 0.0120 Total Protein 6.3 Albumin 3.4 L Globulin 2.9 Albumin/Globulin Ratio 1.2 Urine Color Urine Clarity Urine pH Ur Specific [place] Urine Protein Urine Glucose (UA) Urine Ketones Urine Blood Urine Nitrate Urine Bilirubin Urine Urobilinogen Ur Leukocyte Esterase Urine WBC (Auto) Urine RBC (Auto) Ur Squamous Epith Cells Amorphous Sediment Urine Bacteria 05/07/17 05/07/17 05:47 05:48 WBC RBC Hgb Hct MCV MCH MCHC RDW Plt Count MPV Neut % (Auto) Lymph % (Auto) [place] % (Auto) Eos % (Auto) Baso % (Auto) Neut # Lymph # [place] # Eos # Baso # PT 13.9 H INR 1.2 APTT 27 Sodium Potassium Chloride Carbon Dioxide Anion Gap BUN Creatinine Est GFR ( Amer) Est GFR (Non-Af Amer) Random Glucose Hemoglobin A1c Calcium Total Bilirubin AST ALT Alkaline Phosphatase Total Creatine Kinase CK-MB (Mass) Troponin I, Quant Total Protein Albumin Globulin Albumin/Globulin Ratio Urine Color Yellow Urine Clarity Hazy Urine pH 5.0 Ur Specific [place] 1.018 Urine Protein Negative Urine Glucose (UA) Normal Urine Ketones Negative Urine Blood Negative Urine Nitrate Negative Urine Bilirubin Negative Urine Urobilinogen Normal Ur Leukocyte Esterase 2+ H Urine WBC (Auto) 39 H Urine RBC (Auto) 7 H Ur Squamous Epith Cells 3 Amorphous Sediment Few H Urine Bacteria Occ H Attending/Attestation - Attestation I have personally seen and examined this patient.: Yes I have fully participated in the care of the patient.: Yes I have reviewed all pertinent clinical information: Yes Notes (Text): 05/08/17 01:47 Except as below Patient taken from medical laboratory manager post procedure due to drop in hr and bp needing levophed shortly. h/o CAD, s/p PCI in lad, ischemic cardiomyopathy, s/p biv aicd , aicd firing a day prior, dm, htn, h/o paf on eliquis. Cath report d/w Dr. Ibrahim , RCA occlusion, diagonal occlusion, patent LAD stent, presence of collateral not needing PCI. Hypotension probably due to combination of ischemic cardiomyopathy, sedation. ICU monitoring, hemoglobin, start anticoagulation in the evening if hgb stable, AICD interrogation.
--- NOTE | 2017-05-07 21:34 | CARD ---
APPROVED REPORT EXAM: Two-dimensional and M-mode echocardiogram with Doppler and color Doppler. Other Information Quality : GoodRhythm : NSR INDICATION Dyspnea Atrial Fibrillation Congestive Heart Failure COPD Palpitations RISK FACTORS Hyperlipidemia 2D DIMENSIONS IVSd1.2 (0.7-1.1cm)LVDd6.3 (3.9-5.9cm) PWd1.1 (0.7-1.1cm)LVDs5.2 (2.5-4.0cm) FS (%) 17.1 %LVEF (%)35.0 (>50%) M-Mode DIMENSIONS Left Atrium (MM)5.16 (2.5-4.0cm)Aortic Root3.69 (2.2-3.7cm) Aortic Cusp Exc.1.62 (1.5-2.0cm) Mitral Valve E/A ratio0.0 TDI E/Lateral E'0.0E/Medial E'0.0 Tricuspid Valve TR Peak [id number] Peak [id number] LEFT VENTRICLE The left ventricle is mildly dilated. There is normal left ventricular wall thickness. The left ventricular function is moderately reduced. The left ventricular ejection fraction [id number]%. The inferior wall is hypokinetic. the inferozpex is akinetic, the inferolateral wall is akinetic. The left ventricular diastolic function is indterminate. No left ventricle thrombus noted on this study. There is no ventricular septal defect visualized. There is no left ventricular aneurysm. There is no mass noted in the left ventricle. RIGHT VENTRICLE The right ventricle is normal size. There is normal right ventricular wall thickness. The right ventricular systolic function is normal. A ppm is noted. ATRIA The left atrial index is markedly increased The right atrium size is normal. The interatrial septum is intact with no evidence for an atrial septal defect. AORTIC VALVE The aortic valve is normal in structure and function. Mild aortic regurgitation is present. There is no aortic valvular stenosis. There is no aortic valvular vegetation. MITRAL VALVE The mitral valve is normal in structure and function. There is no evidence of mitral valve prolapse. There is no mitral valve stenosis. There is moderate linferior and laterally directed mitral regurgitation TRICUSPID VALVE The tricuspid valve is normal in structure and function. There is no tricuspid valve regurgitation noted. There is no tricuspid valve prolapse or vegetation. There is no tricuspid valve stenosis. PULMONIC VALVE The pulmonary valve is normal in structure and function. There is no pulmonic valvular regurgitation. There is no pulmonic valvular stenosis. GREAT VESSELS The aortic root is normal in size. The ascending aorta is normal in size. The pulmonary artery is normal. The IVC is normal in size and collapses >50% with inspiration. PERICARDIAL EFFUSION The pericardium appears normal. There is no pleural effusion. <Conclusion> Moderately reduced LV EF, with akinetic inferoapical and inferolateral wall motion. The inferiorr wall was hypokinetic. Moderate inferior and laterally directed mitral regurgitation. Mild aortic regirgitatio. Markedly increased left atrial volume index.
--- NOTE | 2017-05-07 22:29 | CP.PCM.PN ---
Subjective - Date & Time of Evaluation Date of Evaluation: 05/07/17 Time of Evaluation: 11:10 - Subjective Subjective: Patient s/p Cardiac cath 1. L Main: Patent 2. LAD: Prior stent patent, Diag 60% 3. L Cx: Patent 4. RCA: [employer]ENTICE 100%, Left to Right collaterals 5. EF 30% No further intervention needed. Medical theray Patient developed hypotension needing Livophed drip ICU monitoring for a day Objective - Vital Signs/Intake and Output Vital Signs (last 24 hours): Temp Pulse Resp BP Pulse Ox 97.4 F L 70 29 H 116/51 L 98 05/07/17 20:00 05/07/17 21:10 05/07/17 21:10 05/07/17 20:50 05/07/17 21:10 Intake and Output: 05/07/17 05/08/17 18:59 06:59 Intake Total 1107.2 170 Output Total 840 100 Balance 267.2 70 - Medications Medications: Current Medications Acetaminophen (Tylenol 325mg Tab) 650 mg PO Q6 PRN PRN Reason: Fever >100.4 F Alprazolam (Xanax) 0.25 mg PO TID PRN PRN Reason: Anxiety Stop: 05/13/17 20:21 Last Admin: 05/07/17 19:54 Dose: 0.25 mg Aspirin (Ecotrin) 81 mg PO DAILY [facility] Last Admin: 05/07/17 17:05 Dose: 81 mg Bisoprolol Fumarate (Zebeta) 5 mg PO Q12 [facility] Last Admin: 05/07/17 22:10 Dose: Not Given Enoxaparin Sodium (Lovenox) 60 mg SC Q12 [facility] Last Admin: 05/07/17 22:09 Dose: 60 mg Famotidine (Pepcid) 20 mg PO DAILY [facility] Last Admin: 05/07/17 17:05 Dose: 20 mg Finasteride (Proscar) 5 mg PO DAILY [facility] Last Admin: 05/07/17 15:26 Dose: Not Given Finasteride (Proscar) 5 mg PO DAILY [facility] Last Admin: 05/07/17 15:27 Dose: Not Given Furosemide (Lasix) 20 mg PO BID [facility] Last Admin: 05/07/17 15:21 Dose: Not Given Ondansetron HCl (Zofran Inj) 4 mg IVP Q6 PRN PRN Reason: Nausea/Vomiting Pneumococcal Polyvalent Vaccine (Pneumovax 23 Vaccine) 0.5 ml IM .ONCE ONE Stop: 05/08/17 19:26 Rosuvastatin Calcium (Crestor) 20 mg PO HS [facility] Last Admin: 05/07/17 22:11 Dose: 20 mg Sacubitril/Valsartan (Entresto 24 Mg-26 Mg) 1 tab PO DAILY [facility] Last Admin: 05/07/17 15:23 Dose: Not Given Sotalol HCl (Betapace) 160 mg PO BID [facility] Last Admin: 05/07/17 19:28 Dose: Not Given Spironolactone (Aldactone) 25 mg PO DAILY [facility] Last Admin: 05/07/17 15:21 Dose: Not Given Tamsulosin HCl (Flomax) 0.4 mg PO DAILY [facility] Last Admin: 05/07/17 17:05 Dose: 0.4 mg Zolpidem Tartrate (Ambien) 5 mg PO HS PRN PRN Reason: Insomnia Last Admin: 05/06/17 22:38 Dose: 5 mg - Labs Labs: 05/07/17 05:47 05/07/17 05:47 PT 13.9 SECONDS (9.7-12.2) H 05/07/17 05:47 INR 1.2 05/07/17 05:47 APTT 27 SECONDS (21-34) 05/07/17 05:47
[2017-05-08 06:35] LABS: BASO % 0.5 % (0.0-2.0); EOS # 0.1 K/uL (0.0-0.7); EOS % 1.7 % (0.0-4.0); HEMATOCRIT 36.2 % (35.0-51.0); LYMPH % 11.5 % (20.0-40.0); MEAN CELL VOLUME 93.9 fL (80.0-94.0); MEAN CORPUSCULAR HGB CONC 34.1 g/dL (33.0-37.0); MEAN PLATELET VOLUME 8.9 fL (7.2-11.7); MONO # 0.9 K/uL (0.0-0.8); MONO % 10.8 % (0.0-10.0); WHITE BLOOD COUNT 8.5 K/uL (4.8-10.8)
[2017-05-08 06:48] LABS: CHLORIDE 101 mmol/L (98-107)
[2017-05-08 06:49] LABS: POTASSIUM 4.8 mmol/L (3.6-5.2); SODIUM 139 mmol/L (132-148)
[2017-05-08 06:51] LABS: ALB/GLOB RATIO 1.2 (1.0-2.1); ALKALINE PHOSPHATASE 46 U/L (38-126); AST/SGOT 21 U/L (17-59); BILIRUBIN,TOTAL 0.9 mg/dL (0.2-1.3); CARBON DIOXIDE 27 mmol/L (22-30); GFR AFRICAN-AMERICAN > 60; TOTAL PROTEIN 6.2 g/dL (6.3-8.3)
[2017-05-08 06:52] LABS: ALT/SGPT 27 U/L (21-72); BLOOD UREA NITROGEN 25 mg/dL (9-20); CALCIUM 8.8 mg/dl (8.6-10.4); GLUCOSE,RANDOM 102 mg/dL (75-110)
[2017-05-08] MEDS: Sacubitril/Valsartan 24-26mg Tab PO SCH (09:31)
[2017-05-08] MEDS: Enoxaparin 60 mg Syringe SC SCH (09:33)
[2017-05-08 09:54] VITALS: PULSE 70
[2017-05-08 12:52] VITALS: BP 115/51; RESP 17; O2SAT 98
[2017-05-08 12:53] VITALS: TEMP 98
--- NOTE | 2017-05-08 13:30 | CP.PCM.PN ---
Subjective - Date & Time of Evaluation Date of Evaluation: 05/08/17 Time of Evaluation: 15:00 - Subjective Subjective: Patient was seen and examined at bedside. Patient has no new complaints Denies any chest pain or palpitation. Objective - Vital Signs/Intake and Output Vital Signs (last 24 hours): Temp Pulse Resp BP Pulse Ox 98 F 70 17 115/51 L 98 05/08/17 12:00 05/08/17 12:40 05/08/17 12:40 05/08/17 12:17 05/08/17 12:40 Intake and Output: 05/08/17 05/08/17 06:59 18:59 Intake Total 260 590 Output Total 400 100 Balance -140 490 - Medications Medications: Current Medications Acetaminophen (Tylenol 325mg Tab) 650 mg PO Q6 PRN PRN Reason: Fever >100.4 F Alprazolam (Xanax) 0.25 mg PO TID PRN PRN Reason: Anxiety Stop: 05/13/17 20:21 Last Admin: 05/07/17 19:54 Dose: 0.25 mg Aspirin (Ecotrin) 81 mg PO DAILY [facility] Last Admin: 05/08/17 09:30 Dose: 81 mg Bisoprolol Fumarate (Zebeta) 5 mg PO Q12 [facility] Last Admin: 05/08/17 09:29 Dose: 5 mg Enoxaparin Sodium (Lovenox) 60 mg SC Q12 [facility] Last Admin: 05/08/17 09:33 Dose: 60 mg Famotidine (Pepcid) 20 mg PO DAILY [facility] Last Admin: 05/08/17 09:30 Dose: 20 mg Finasteride (Proscar) 5 mg PO DAILY [facility] Last Admin: 05/08/17 09:33 Dose: 5 mg Furosemide (Lasix) 20 mg PO BID [facility] Last Admin: 05/08/17 09:30 Dose: 20 mg Ondansetron HCl (Zofran Inj) 4 mg IVP Q6 PRN PRN Reason: Nausea/Vomiting Pneumococcal Polyvalent Vaccine (Pneumovax 23 Vaccine) 0.5 ml IM .ONCE ONE Stop: 05/08/17 19:26 Rosuvastatin Calcium (Crestor) 20 mg PO HS [facility] Last Admin: 05/07/17 22:11 Dose: 20 mg Sacubitril/Valsartan (Entresto 24 Mg-26 Mg) 1 tab PO DAILY [facility] Last Admin: 05/08/17 09:31 Dose: 1 tab Sotalol HCl (Betapace) 160 mg PO BID [facility] Last Admin: 05/08/17 09:30 Dose: 160 mg Spironolactone (Aldactone) 25 mg PO DAILY [facility] Last Admin: 05/08/17 09:33 Dose: 25 mg Tamsulosin HCl (Flomax) 0.4 mg PO DAILY [facility] Last Admin: 05/08/17 09:32 Dose: 0.4 mg Zolpidem Tartrate (Ambien) 5 mg PO HS PRN PRN Reason: Insomnia Last Admin: 05/07/17 23:02 Dose: 5 mg - Labs Labs: 05/08/17 06:19 05/08/17 06:19 PT 13.9 SECONDS (9.7-12.2) H 05/07/17 05:47 INR 1.2 05/07/17 05:47 APTT 27 SECONDS (21-34) 05/07/17 05:47 - Head Exam Head Exam: ATRAUMATIC, NORMOCEPHALIC - Eye Exam Eye Exam: Normal appearance - ENT Exam ENT Exam: Mucous Membranes Moist - Neck Exam Neck Exam: Normal Inspection - Respiratory Exam Respiratory Exam: Clear to Ausculation Bilateral - Cardiovascular Exam Cardiovascular Exam: REGULAR RHYTHM, +S1, +S2 - GI/Abdominal Exam GI & Abdominal Exam: Soft. absent: Tenderness - Extremities Exam Extremities Exam: absent: Pedal Edema Assessment and Plan (1) Arrhythmia Status: Acute (2) Automatic implantable cardiac defibrillator in situ Status: Acute (3) Atrial fibrillation Status: Chronic (4) Coronary artery disease Status: Acute - Assessment and Plan (Free Text) Plan: AICD interrogated. Patient had cardiac catheterization No intervention suggested Patient is clear for discharge by cardiology We'll discharge the patient home
--- NOTE | 2017-05-08 16:39 | CP.PCM.DIS ---
Provider - Provider Date of Admission: 05/06/17 14:43 Attending physician: Tyler Noble MD Hospital Course - Lab Results Lab Results: Most Recent Lab Values WBC 8.5 K/uL (4.8-10.8) 05/08/17 06:19 RBC 3.85 Mil/uL (4.40-5.90) L 05/08/17 06:19 Hgb 12.3 g/dL (12.0-18.0) 05/08/17 06:19 Hct 36.2 % (35.0-51.0) 05/08/17 06:19 MCV 93.9 fL (80.0-94.0) 05/08/17 06:19 MCH 32.0 pg (27.0-31.0) H 05/08/17 06:19 MCHC 34.1 g/dL (33.0-37.0) 05/08/17 06:19 RDW 14.0 % (11.5-14.5) 05/08/17 06:19 Plt Count 134 K/uL (130-400) 05/08/17 06:19 MPV 8.9 fL (7.2-11.7) 05/08/17 06:19 Neut % (Auto) 75.5 % (50.0-75.0) H 05/08/17 06:19 Lymph % (Auto) 11.5 % (20.0-40.0) L 05/08/17 06:19 [place] % (Auto) 10.8 % (0.0-10.0) H 05/08/17 06:19 Eos % (Auto) 1.7 % (0.0-4.0) 05/08/17 06:19 Baso % (Auto) 0.5 % (0.0-2.0) 05/08/17 06:19 Neut # 6.4 K/uL (1.8-7.0) 05/08/17 06:19 Lymph # 1.0 K/uL (1.0-4.3) 05/08/17 06:19 [place] # 0.9 K/uL (0.0-0.8) H 05/08/17 06:19 Eos # 0.1 K/uL (0.0-0.7) 05/08/17 06:19 Baso # 0.0 K/uL (0.0-0.2) 05/08/17 06:19 PT 13.9 SECONDS (9.7-12.2) H 05/07/17 05:47 INR 1.2 05/07/17 05:47 APTT 27 SECONDS (21-34) 05/07/17 05:47 Sodium 139 mmol/L (132-148) 05/08/17 06:19 Potassium 4.8 mmol/L (3.6-5.2) 05/08/17 06:19 Chloride 101 mmol/L (98-107) 05/08/17 06:19 Carbon Dioxide 27 mmol/L (22-30) 05/08/17 06:19 Anion Gap 17 (10-20) 05/08/17 06:19 BUN 25 mg/dL (9-20) H 05/08/17 06:19 Creatinine 1.2 MG/DL (0.8-1.5) 05/08/17 06:19 Est GFR ( Amer) > 60 05/08/17 06:19 Est GFR (Non-Af Amer) 58 05/08/17 06:19 Random Glucose 102 mg/dL (75-110) 05/08/17 06:19 Hemoglobin A1c 6.2 % (4.2-6.5) 05/07/17 05:47 Calcium 8.8 mg/dl (8.6-10.4) 05/08/17 06:19 Total Bilirubin 0.9 mg/dL (0.2-1.3) 05/08/17 06:19 AST 21 U/L (17-59) 05/08/17 06:19 ALT 27 U/L (21-72) 05/08/17 06:19 Alkaline Phosphatase 46 U/L (38-126) 05/08/17 06:19 Total Creatine Kinase 22 U/L (55-170) L 05/07/17 05:47 CK-MB (Mass) 0.48 ng/mL (0.0-3.38) 05/07/17 05:47 Troponin I < 0.0120 ng/mL (0.00-0.120) 05/06/17 13:48 Troponin I, Quant < 0.0120 ng/mL (0.00-0.120) 05/07/17 05:47 NT-Pro-B Natriuret Pep 1570 pg/mL (0-900) H 05/06/17 13:48 Total Protein 6.2 g/dL (6.3-8.3) L 05/08/17 06:19 Albumin 3.4 g/dL (3.5-5.0) L 05/08/17 06:19 Globulin 2.8 gm/dL (2.2-3.9) 05/08/17 06:19 Albumin/Globulin Ratio 1.2 (1.0-2.1) 05/08/17 06:19 Free T4 1.28 ng/dL (0.78-2.19) 05/06/17 13:48 Total T3 1.65 nmol/L (1.49-2.60) 05/06/17 13:48 TSH 3rd Generation 1.09 mIU/L (0.46-4.68) 05/06/17 13:48 Urine Color Yellow (YELLOW) 05/07/17 05:48 Urine Clarity Hazy (Clear) 05/07/17 05:48 Urine pH 5.0 (5.0-8.0) 05/07/17 05:48 Ur Specific [place] 1.018 (1.003-1.030) 05/07/17 05:48 Urine Protein Negative mg/dL (NEGATIVE) 05/07/17 05:48 Urine Glucose (UA) Normal mg/dL (Normal) 05/07/17 05:48 Urine Ketones Negative mg/dL (NEGATIVE) 05/07/17 05:48 Urine Blood Negative (NEGATIVE) 05/07/17 05:48 Urine Nitrate Negative (NEGATIVE) 05/07/17 05:48 Urine Bilirubin Negative (NEGATIVE) 05/07/17 05:48 Urine Urobilinogen Normal mg/dL (0.2-1.0) 05/07/17 05:48 Ur Leukocyte Esterase 2+ Debora/uL (Negative) H 05/07/17 05:48 Urine WBC (Auto) 39 /hpf (0-5) H 05/07/17 05:48 Urine RBC (Auto) 7 /hpf (0-3) H 05/07/17 05:48 Ur Squamous Epith Cells 3 /hpf (0-5) 05/07/17 05:48 Amorphous Sediment Few /ul (<OCC) H 05/07/17 05:48 Urine Bacteria Occ (<OCC) H 05/07/17 05:48 Digoxin 0.9 ng/mL (0.8-2.0) 05/06/17 13:48 Discharge Exam - Head Exam Head Exam: ATRAUMATIC, NORMOCEPHALIC Discharge Plan - Follow Up Plan Condition: FAIR Disposition: HOME/ ROUTINE Instructions: Sotalol (By mouth), Apixaban (By mouth), Chest Pain (GEN), Safe Use of Antiplatelet Medication (DC), Implantable Cardioverter Defibrillator (DC) Referrals: Lopez Hernandez MD [Staff Provider] -
[2017-05-08] MEDS ORDERED: Pneumococcal 23-Valent Vaccine IM ONE (19:25)
--- NOTE | 2017-05-09 08:53 | CP.PCM.PN ---
Subjective - Date & Time of Evaluation Date of Evaluation: 05/08/17 Time of Evaluation: 11:00 - Subjective Subjective: Patient seen and evaluated Denies chest pain and dyspnea AICD interrogation revealed no new shocks Objective - Vital Signs/Intake and Output Vital Signs (last 24 hours): Temp Pulse Resp BP Pulse Ox 98 F 70 17 115/51 L 98 05/08/17 12:00 05/08/17 12:40 05/08/17 12:40 05/08/17 12:17 05/08/17 12:40 - Labs Labs: 05/08/17 06:19 05/08/17 06:19 PT 13.9 SECONDS (9.7-12.2) H 05/07/17 05:47 INR 1.2 05/07/17 05:47 APTT 27 SECONDS (21-34) 05/07/17 05:47 - Head Exam Head Exam: ATRAUMATIC, NORMAL INSPECTION - Eye Exam Eye Exam: EOMI, PERRL Pupil Exam: NORMAL ACCOMODATION - ENT Exam ENT Exam: Mucous Membranes Moist - Neck Exam Neck Exam: Full ROM - Respiratory Exam Respiratory Exam: Clear to Ausculation Bilateral, NORMAL BREATHING PATTERN - Cardiovascular Exam Cardiovascular Exam: +S1, +S2 - GI/Abdominal Exam GI & Abdominal Exam: Soft, Normal Bowel Sounds - Extremities Exam Extremities Exam: Full ROM - Neurological Exam Neurological Exam: Alert, Oriented x3 - Skin Skin Exam: Warm Assessment and Plan - Assessment and Plan (Free Text) Assessment: 1. CAD 2. Ischemic CMP s/p AICD 3. A Fib 4. Anxiety Recommend continue current home medications F/U Dr. Luther and Dr. Hernandez
--- NOTE | 2017-05-09 20:39 | CARDCATH ---
PROCEDURE DATE: 05/07/2017 PROCEDURES: 1. Left heart catheterization. 2. Coronary angiogram. 3. Abdominal aortogram. 4. Peripheral angiogram. CLINICAL INDICATIONS: 1. Recurrent anginal episode despite maximum medical therapy. 2. Coronary artery disease, history of stent placement. 3. Chronic systolic congestive heart failure. 4. Hypertension. 5. Hyperlipidemia. 6. History of biventricular implantable cardioverter defibrillator placement. REFERRING PHYSICIAN: 1. Dr. Filippo Luther. 2. Dr. Lopez Hernandez. PERFORMING PHYSICIAN: Dr. Filippo Ibrahim. PROCEDURE: After informed consent the patient was prepped and draped in the usual sterile fashion. A 2% Lidocaine was given in the left groin for local anesthesia. Using micropuncture technique, 6-Sinhala sheath was introduced into the left common femoral artery. Using the usual diagnostic catheters, left heart catheterization and coronary angiogram was performed. Due to very weak pulses, abdominal angiogram and bilateral iliac angiogram was performed. Post procedure, the patient became hypotensive within the manager laboratory holding. The patient was started on IV Levophed and transferred to ICU for further management. The patient became normotensive after one hour. The Levophed drip was titrated off. The patient was hemodynamically stable. FINDINGS OF THE HEART CATHETERIZATION: 1. Left main coronary is patent. 2. Left anterior descending coronary artery is patent. Prior stent in the mid LAD is patent. D1 has proximal calcific 60% stenosis. 3. Left circumflex is small and patent. 4. Right coronary artery has a proximal 100% chronic total occlusion. There are left to right collaterals. 5. Left ventricular ejection fraction is approximately 35 to 40%. EDP is 20. Global hypokinesis. Low gradient aortic valve. FINDINGS: Peripheral Angiogram: 1. Abdominal aortic mild aneurysm. 2. The patient has bilateral 50% common femoral artery calcific disease. IMPRESSION: 1. Coronary artery disease as described above. 2. Mild to moderate peripheral arterial disease. PLAN: Recommend aggressive medical management. Filippo Ibrahim MD
--- NOTE | 2017-05-14 18:40 | CARD ---
APPROVED REPORT EKG Measurement Heart [id number] <Conclusion> Accelerated Junctional rhythm with frequent ventricular-paced complexes Rightward axis Incomplete right bundle branch block Anterior infarct, age undetermined ST & T wave abnormality, consider lateral ischemia Abnormal ECG
== END 2017-05-08 13:34 | disposition home or self-care (01) | DRG 287 ==
LOC: C.ER 13:00 → C.9E 14:43 → C.6T 17:23 → C.9I 05-07 10:27
PROVIDERS: ADMIT Internal Medicine; ATTEND Internal Medicine
PROC: B2111ZZ Fluoroscopy of Multiple Coronary Arteries using Low Osmolar Contrast (ICD-10-PCS; 2017-05-07)
PROC: B4101ZZ Fluoroscopy of Abdominal Aorta using Low Osmolar Contrast (ICD-10-PCS; 2017-05-07)
PROC: B41F1ZZ Fluoroscopy of Right Lower Extremity Arteries using Low Osmolar Contrast (ICD-10-PCS; 2017-05-07)
PROC: B41G1ZZ Fluoroscopy of Left Lower Extremity Arteries using Low Osmolar Contrast (ICD-10-PCS; 2017-05-07)
PROC: 4A023N7 Measurement of Cardiac Sampling and Pressure, Left Heart, Percutaneous Approach (ICD-10-PCS; principal; 2017-05-07 07:30)
DX: I49.9 Cardiac arrhythmia, unspecified (principal); I11.0 Hypertensive heart disease with heart failure; I95.9 Hypotension, unspecified; I50.22 Chronic systolic (congestive) heart failure; I48.0 Paroxysmal atrial fibrillation; I25.119 Atherosclerotic heart disease of native coronary artery with unspecified angina pectoris; I25.5 Ischemic cardiomyopathy; I73.9 Peripheral vascular disease, unspecified; E11.9 Type 2 diabetes mellitus without complications; E78.5 Hyperlipidemia, unspecified; N40.0 Benign prostatic hyperplasia without lower urinary tract symptoms; I25.2 Old myocardial infarction; Z87.891 Personal history of nicotine dependence; Z95.5 Presence of coronary angioplasty implant and graft; Z95.810 Presence of automatic (implantable) cardiac defibrillator

== ENCOUNTER 2017-05-21 11:27 | Inpatient (IN) | payer MEDICARE, BC ==
[2017-05-21 11:28] VITALS: PULSE 70
--- NOTE | 2017-05-21 12:24 | C.PDOC ---
History Of Present Illness Patient is a 81 year old male, with past medical history of atrial fibrillation , CAD, cardia arrhythmia, CHF, COPD, HTN, hypercholesterolemia, presents to Emergency Department for evaluation of chest pain which started prior to arrival. Pt was brought to ED by EMS, pt was found in V-tach, and was cardioverted in field. On arrival, pt is cool to touch, diaphoretic, faint, and found to be in ventricular paced rhythm. Note, pt has pacemaker defibrillator. Otherwise, pt is awake, alert, and oriented x3. Pt denies shortness of breath, cough, fever, chills, or any other associated symptoms at this time. Time Seen by Provider: 05/21/17 11:51 Chief Complaint (Nursing): Chest Pain History Per: Patient, EMS History/Exam Limitations: no limitations Onset/Duration Of Symptoms: Hrs Current Symptoms Are (Timing): Still Present Quality: Sharp, "Pain" Associated Symptoms: Diaphoresis. denies: Nausea, Dyspnea, Syncope Modifying Factors: None Exacerbating Factors: None Alleviating Factors: None Recent travel outside of the [place]: No Additional History Per: EMS, Family Past Medical History Reviewed: Historical Data, Nursing Documentation, Vital Signs Vital Signs: Last Vital Signs Temp 96.8 F L 05/21/17 15:54 Pulse 82 05/21/17 15:00 Resp 19 05/21/17 15:00 BP 105/62 05/21/17 13:03 Pulse Ox 94 L 05/21/17 16:19 - Medical History PMH: Anemia, Arthritis, Atrial Fibrillation, CAD, Cardia Arrhythmia, CHF, Colonic Polyps, COPD, Emphysema, HTN, Hypercholesterolemia, Peripheral Edema Surgical History: Coronary Stent (x1), Endoscopy, Pacemaker - [facility] Procedures COLONOSCOPY (06/22/07) DRAINAGE OF RIGHT PLEURAL CAVITY, PERCUTANEOUS APPROACH (10/28/15) ENDO RECTUM POLYPECTOMY (12/27/14) ENDOSC POLYPECTOMY OF LG INTEST (02/07/05) ESOPHAGOGASTRODUODENOSCOPY [EGD] W/CLOSED BIOPSY (12/27/14) FLUOROSCOPY OF ABDOMINAL AORTA USING LOW OSMOLAR CONTRAST (05/06/17) FLUOROSCOPY OF L LOW EXTREM ART USING L OSM CONTRAST (05/06/17) FLUOROSCOPY OF MULT COR ART USING L OSM CONTRAST (05/06/17) FLUOROSCOPY OF R LOW EXTREM ART USING L OSM CONTRAST (05/06/17) INJECT/INFUSE NEC (02/07/05) INSERTION OF INFUSION DEV INTO SUP VENA CAVA, PERC APPROACH (10/28/15) MEASURE OF CARDIAC SAMPL & PRESSURE, L HEART, PERC APPROACH (05/06/17) PACKED CELL TRANSFUSION (12/27/14) PEDICLE GRAFT/FLAP NOS (04/10/06) RADICAL EXCIS SKIN LES (04/10/06) THORACENTESIS (05/25/15) Family History: States: Unknown Family Hx - Social History Hx Tobacco Use: No Hx Alcohol Use: No Hx Substance Use: No - Immunization History Hx Tetanus Toxoid Vaccination: No Hx Influenza Vaccination: No Hx Pneumococcal Vaccination: No Review Of Systems Except As Marked, All Systems Reviewed And Found Negative. Constitutional: Negative for: Fever, Chills Cardiovascular: Positive for: Chest Pain. Negative for: Edema, Light Headedness Respiratory: Negative for: Cough, Shortness of Breath Gastrointestinal: Negative for: Nausea, Vomiting, Abdominal Pain Musculoskeletal: Negative for: Neck Pain, Back Pain Skin: Negative for: Rash, Bruising Neurological: Negative for: Weakness, Numbness, Change in Speech, Headache, Dizziness Physical Exam - Physical Exam Appears: Non-toxic, Other (Uncomfortable) Skin: No Warm (cool to touch), Diaphoretic, Pale Head: Atraumatic, Normacephalic Eye(s): bilateral: Normal Inspection, PERRL, EOMI Oral Mucosa: Moist Neck: Normal ROM, Supple Chest: Symmetrical Cardiovascular: Rhythm Regular, No Murmur Respiratory: No Accessory Muscle Use, No Rales, No Rhonchi, No Wheezing Gastrointestinal/Abdominal: Soft, No Tenderness Back: No CVA Tenderness Extremity: Normal ROM, No Tenderness, Pedal Edema (b/l), No Calf Tenderness, Capillary Refill (<2 sec.), No Deformity Neurological/Psych: Oriented x3, Normal Speech, Normal Cognition ED Course And Treatment - Laboratory Results Result Diagrams: 05/21/17 12:27 05/21/17 12:27 ECG: Interpreted By Me, Viewed By Me Interpretation Of ECG: Ventricular paced rhythm at 80bpm. Rate From EC (bpm) O2 Sat by Pulse Oximetry: 94 Medical Decision Making Medical Decision Making: Blood work, EKG, CXR ordered and reviewed. Disposition Discussed With : Filippo Ibrahim Doctor Will See Patient In The: Hospital Counseled Patient/Family Regarding: Studies Performed, Diagnosis - Disposition Disposition: HOSPITALIZED Disposition Time: 12:24 Condition: SERIOUS - Clinical Impression Clinical Impression: Ventricular tachyarrhythmia, Dyspnea, Hypotension - Scribe Statement The provider has reviewed the documentation as recorded by the Dai Huertas All medical record entries made by the Scribe were at my direction and personally dictated by me. I have reviewed the chart and agree that the record accurately reflects my personal performance of the history, physical exam, medical decision making, and the department course for this patient. I have also personally directed, reviewed, and agree with the discharge instructions and disposition. Decision To Admit - Pt Status Changed To: Hospital Disposition Of: Inpatient - Admit Certification Admit to Inpatient:: After my assessment, the patient will require hospitalization for at least two midnights. This is because of the severity of symptoms shown, intensity of services needed, and/or the medical risk in this patient being treated as an outpatient. - InPatient: Physician Admission Certification: I certify that this patient requires 2 or more midnights of care for the following reason:: critical patient - . Bed Request Type: ICU Admitting Physician: Tennille Baugh Patient Diagnosis: Ventricular tachyarrhythmia, Dyspnea, Hypotension
[2017-05-21 12:30] LABS: BASO # 0.1 K/uL (0.0-0.2); BASO % 0.6 % (0.0-2.0); EOS # 0.1 K/uL (0.0-0.7); EOS % 1.4 % (0.0-4.0); HEMATOCRIT 36.9 % (35.0-51.0); LYMPH # 1.1 K/uL (1.0-4.3); LYMPH % 12.1 % (20.0-40.0); MEAN CELL VOLUME 95.4 fL (80.0-94.0); MEAN CORPUSCULAR HEMOGLOBIN 32.2 pg (27.0-31.0); MEAN CORPUSCULAR HGB CONC 33.7 g/dL (33.0-37.0); MEAN PLATELET VOLUME 9.1 fL (7.2-11.7); MONO % 10.5 % (0.0-10.0); NRBC % 0.1 % (0.0-2.0); RED CELL DISTRIBUTION WIDTH 15.1 % (11.5-14.5); WHITE BLOOD COUNT 9.2 K/uL (4.8-10.8)
[2017-05-21 12:42] LABS: ALB/GLOB RATIO 1.3 (1.0-2.1); BILIRUBIN,TOTAL 1.4 mg/dL (0.2-1.3); CALCIUM 8.7 mg/dl (8.6-10.4); POTASSIUM 3.9 mmol/L (3.6-5.2); TOTAL PROTEIN 6.9 g/dL (6.3-8.3)
[2017-05-21 12:54] LABS: TROPONIN I 0.014 ng/mL (0.00-0.120)
--- NOTE | 2017-05-21 13:13 | RAD ---
PROCEDURE: CHEST RADIOGRAPH, 1 VIEW HISTORY: chest pain COMPARISON: Comparison chest 05/06/2017 FINDINGS: LUNGS: Poor inspiration with low lung volumes, crowded bronchovascular markings and mild bibasilar atelectasis. . Questionable small right effusion Note that the left lung base is partially obscured by radiopaque defibrillator pad. PLEURA: As above. No evidence of pneumothorax CARDIOVASCULAR: Heart appears enlarged. Multi lead pacemaker/ defibrillator again noted. Disconnected right-sided pacemaker/ defibrillator leads also unchanged. OSSEOUS STRUCTURES: No significant abnormalities. VISUALIZED UPPER ABDOMEN: Normal. OTHER FINDINGS: None. IMPRESSION: Poor inspiration with low lung volumes, crowded bronchovascular markings and mild bibasilar atelectasis. . Questionable small right effusion Note that the left lung base is partially obscured by radiopaque defibrillator pad.
[2017-05-21 14:29] LABS: PHOSPHOROUS 4.1 mg/dL (2.5-4.5)
[2017-05-21 14:30] LABS: MAGNESIUM 2.4 mg/dL (1.6-2.3)
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
[2017-05-21] MEDS ORDERED: Fluticasone-Salmeterol 100-50mcg Diskus INH SCH (20:00)
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
--- NOTE | 2017-05-21 21:46 | CP.PCM.CON ---
History of Present Illness - History of Present Illness History of Present Illness: Mr. Moura presented with sudden onset of 'feeling wierd 'in the stomach, diaphoresis palpitations ~10.30 am this morning (05.21.17) EMS arrived and found him to be in 'tachycardia'; he was 'shocked' and brought to the ER at [facility]; He was found to be cold clammy in atrial fibrillation and a paced ventricular rhythm. EMS rhythm strips were unavailable He was admitted with similar circumstances in April 2016; again evidentiary EKG was not available; he was placed on sotalol and the ICD was programmed to a VT zone of 180 beats per minute; a cardiac cath showed occluded diagonal/right coronary artery and patent stent in the LAD His past medical history is extensive with systemic hypertension, coronary artery disease, severe cardiomyopathy, atrial fibrillationICD implant [place] [address] Mathew in [facility], followed by a replacement by Dr. Owens in 2012 at [facility]; followed by a BIVICD upgrade in at [facility] by Past surgery: * ICD * abdominal lipomas * cataracts Social: ex smoker discontinued in 1992Denied alcohol abuse;worked in the [employer] industry Medications * Eloquis 2.5 BID * Dig 0.125 QD * Lasix 20 mg QD * Losarten 25mg QD * Statin 4mg QD * Crestor 20mg QD * Sodalol 160mg BID * Entresto 24/26 QD * Tamsulosin 0.4 QD * Eplerenone 25 QD * Finasteride 25 QD Allergies: None Exam No distress Afebrile Pulse 80 regular Prominent parotids Elevated venous pressures No bruit PMI? Soft S1 2/6 hollow murmur at the apex and the right lower sternal border Normal S2P2 Abdomen soft; no bruit No edema DP ? Past Patient History - Infectious Disease Hx of Infectious Diseases: None - Tetanus Immunizations Tetanus Immunization: Unknown - Past Medical History & Family History Past Medical History?: Yes - Past Social History Smoking Status: Former Smoker - CARDIAC Hx Atrial Fibrillation: Yes Hx Cardia Arrhythmia: Yes Hx Congestive Heart Failure: Yes Hx Hypercholesterolemia: Yes Hx Hypertension: Yes Hx Pacemaker: Yes Hx Peripheral Edema: Yes - PULMONARY Hx Chronic Obstructive Pulmonary Disease (COPD): Yes Hx Emphysema: Yes - NEUROLOGICAL Hx Neurological Disorder: Yes Hx Dizziness: Yes Hx Syncope: Yes - HEENT Hx HEENT Problems: Yes Hx Glaucoma: Yes - ENDOCRINE/METABOLIC Hx Endocrine Disorders: No - HEMATOLOGICAL/ONCOLOGICAL Hx Anemia: Yes - INTEGUMENTARY Hx Dermatological Problems: No - MUSCULOSKELETAL/RHEUMATOLOGICAL Hx Arthritis: Yes - GASTROINTESTINAL Hx Gastrointestinal Disorders: Yes - GENITOURINARY/GYNECOLOGICAL Hx Genitourinary Disorders: No - PSYCHIATRIC Hx Substance Use: No - SURGICAL HISTORY Hx Coronary Stent: Yes (x1) - ANESTHESIA Hx Anesthesia: Yes Hx Anesthesia Reactions: No Hx Malignant Hyperthermia: No Meds Allergies/Adverse Reactions: Allergies Allergy/AdvReac Type Severity Reaction Status Date / Time No Known Allergies Allergy Verified 10/28/15 17:23 - Medications Medications: Current Medications Apixaban (Eliquis) 2.5 mg PO BID [facility] Aspirin (Ecotrin) 81 mg PO DAILY [facility] Bisoprolol Fumarate (Zebeta) 5 mg PO BID [facility] Cyanocobalamin (Vitamin B12 1000 Mcg Tab) 1,000 mcg PO DAILY [facility] Ergocalciferol (Drisdol 50,000 Intl Units Cap) 1 cap PO QWK [facility] Finasteride (Proscar) 5 mg PO DAILY [facility] Folic Acid (Folic Acid) 1 mg PO DAILY [facility] Furosemide (Lasix) 40 mg PO DAILY [facility] Home Med (Eplerenone [Eplerenone]) 25 mg PO DAILY [facility] Multivitamins (Hexavitamin) 1 tab PO DAILY [facility] Pantoprazole Sodium (Protonix Ec Tab) 20 mg PO DAILY [facility] Rosuvastatin Calcium (Crestor) 20 mg PO HS [facility] Sacubitril/Valsartan (Entresto 24 Mg-26 Mg) 1 tab PO DAILY [facility] Fluticasone/Salmeterol (Advair Diskus 100/50) 1 puff INH RQ12 [facility] Sotalol HCl (Betapace) 160 mg PO DAILY [facility] Tamsulosin HCl (Flomax) 0.4 mg PO DAILY [facility] Results - Vital Signs Recent Vital Signs: Last Vital Signs Temp 97.4 F L 05/21/17 20:00 Pulse 80 05/21/17 20:16 Resp 14 05/21/17 20:16 BP 106/68 05/21/17 20:16 Pulse Ox 97 05/21/17 20:16 - Labs Result Diagrams: 05/21/17 12:27 05/21/17 12:27 Labs: Laboratory Results - last 24 hr 09/14/17 19:05 Total Creatine Kinase 29 L CK-MB (Mass) 0.90 Troponin I, Quant 0.1270 H* Assessment & Plan - Assessment and Plan (Free Text) Assessment: Mr. Moura has recurrent tachyarrhythmias likely ventricular in origin albiet speculative in absence of documentation Its breakthrough sotalol is a concern unless it was torsade Options at this point include reprogramming the ICD, change antiarrhythmic, and consider ablation contingent on the nature of the arrhythmia DW Dr. Owens regarding prior management plans In the interim would continue with sotalol; of note prolonged QTc; avoid electrolyte abnormalities DW patient at length prognosis options procedures and risks; he verbalized understanding Plan: See assessment
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
[2017-05-22 02:57] LABS: CHLORIDE 104 mmol/L (98-107); SODIUM 140 mmol/L (132-148)
[2017-05-22 02:58] LABS: POTASSIUM 4.3 mmol/L (3.6-5.2)
[2017-05-22 02:59] LABS: GFR AFRICAN-AMERICAN > 60
[2017-05-22 03:00] LABS: ALB/GLOB RATIO 1.4 (1.0-2.1); ALKALINE PHOSPHATASE 45 U/L (38-126); ALT/SGPT 40 U/L (21-72); AST/SGOT 27 U/L (17-59); BILIRUBIN,TOTAL 1.1 mg/dL (0.2-1.3); BLOOD UREA NITROGEN 32 mg/dL (9-20); CALCIUM 8.7 mg/dl (8.6-10.4); CARBON DIOXIDE 26 mmol/L (22-30); GLUCOSE,RANDOM 86 mg/dL (75-110); PHOSPHOROUS 4.3 mg/dL (2.5-4.5); TOTAL PROTEIN 6.9 g/dL (6.3-8.3)
[2017-05-22 03:01] LABS: MAGNESIUM 2.5 mg/dL (1.6-2.3)
[2017-05-22 06:40] LABS: BASO % 0.4 % (0.0-2.0); EOS # 0.2 K/uL (0.0-0.7); EOS % 1.7 % (0.0-4.0); LYMPH # 1.2 K/uL (1.0-4.3); LYMPH % 13.5 % (20.0-40.0); MEAN CELL VOLUME 95.1 fL (80.0-94.0); MEAN CORPUSCULAR HEMOGLOBIN 32.8 pg (27.0-31.0); MEAN CORPUSCULAR HGB CONC 34.5 g/dL (33.0-37.0); MEAN PLATELET VOLUME 8.7 fL (7.2-11.7); MONO # 0.9 K/uL (0.0-0.8); MONO % 10.3 % (0.0-10.0); RED CELL DISTRIBUTION WIDTH 14.9 % (11.5-14.5)
[2017-05-22] MEDS: Multiple Vitamins Tab PO SCH (09:03)
[2017-05-22] MEDS: Pantoprazole 20 mg EC Tab PO SCH (09:05)
[2017-05-22] MEDS: Sacubitril/Valsartan 24-26mg Tab PO SCH (09:06)
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
[2017-05-22] MEDS ORDERED: Pantoprazole 40 mg EC Tab PO SCH (10:00)
[2017-05-22] MEDS ORDERED: EPLERENONE 25 MG PO SCH (10:00)
[2017-05-22] MEDS ORDERED: Ergocalciferol 50,000 Intl Units Cap PO SCH (10:00)
[2017-05-22] MEDS ORDERED: Amiodarone 150mg/3 ml vial ONE (11:10)
[2017-05-22] MEDS ORDERED: Lidocaine 2% Inj (20ml) IV ONE (13:15)
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
[2017-05-22] MEDS: Fluticasone-Salmeterol 100-50mcg Diskus INH SCH (20:21)
[2017-05-23 07:13] LABS: BASO # 0.1 K/uL (0.0-0.2); BASO % 0.5 % (0.0-2.0); EOS # 0.2 K/uL (0.0-0.7); EOS % 1.3 % (0.0-4.0); HEMATOCRIT 37.1 % (35.0-51.0); LYMPH # 1.1 K/uL (1.0-4.3); LYMPH % 7.7 % (20.0-40.0); MEAN CELL VOLUME 96.8 fL (80.0-94.0); MEAN CORPUSCULAR HEMOGLOBIN 32.5 pg (27.0-31.0); MEAN CORPUSCULAR HGB CONC 33.6 g/dL (33.0-37.0); MEAN PLATELET VOLUME 9.2 fL (7.2-11.7); MONO # 1.2 K/uL (0.0-0.8); MONO % 9.1 % (0.0-10.0); PLATELET COUNT 156 K/uL (130-400); WHITE BLOOD COUNT 13.7 K/uL (4.8-10.8)
--- NOTE | 2017-05-23 07:25 | CP.PCM.PN ---
Subjective - Date & Time of Evaluation Date of Evaluation: 05/22/17 Time of Evaluation: 19:30 - Subjective Subjective: Patient seen and evaluated Episode of V Tach successfully managed by ICU attending Patient denies chest pain and dyspnea Objective - Vital Signs/Intake and Output Vital Signs (last 24 hours): Temp Pulse Resp BP Pulse Ox 97.5 F L 81 25 H 113/77 95 05/23/17 04:00 05/23/17 04:09 05/23/17 04:09 05/23/17 04:09 05/23/17 04:09 Intake and Output: 05/23/17 05/23/17 06:59 18:59 Intake Total 316.4 Output Total 350 Balance -33.6 - Medications Medications: Current Medications Apixaban (Eliquis) 2.5 mg PO BID [facility] Last Admin: 05/22/17 19:10 Dose: 2.5 mg Aspirin (Ecotrin) 81 mg PO DAILY [facility] Last Admin: 05/22/17 09:03 Dose: 81 mg Bisoprolol Fumarate (Zebeta) 5 mg PO BID [facility] Last Admin: 05/22/17 19:10 Dose: 5 mg Cyanocobalamin (Vitamin B12 1000 Mcg Tab) 1,000 mcg PO DAILY [facility] Last Admin: 05/22/17 09:04 Dose: 1,000 mcg Ergocalciferol (Drisdol 50,000 Intl Units Cap) 1 cap PO QWK [facility] Last Admin: 05/22/17 09:20 Dose: 1 cap Finasteride (Proscar) 5 mg PO DAILY [facility] Last Admin: 05/22/17 09:03 Dose: 5 mg Folic Acid (Folic Acid) 1 mg PO DAILY [facility] Last Admin: 05/22/17 09:04 Dose: 1 mg Furosemide (Lasix) 40 mg PO DAILY [facility] Last Admin: 05/22/17 09:03 Dose: 40 mg Home Med (Eplerenone [Eplerenone]) 25 mg PO DAILY [facility] Amiodarone HCl 900 mg/ (Dextrose) 500 mls @ 16.66 mls/hr IV .Q24H ONE; 0.5 MG/ MIN PRN Reason: Protocol Stop: 05/24/17 03:59 Last Admin: 05/23/17 04:00 Dose: 16.66 mls/hr Multivitamins (Hexavitamin) 1 tab PO DAILY [facility] Last Admin: 05/22/17 09:03 Dose: 1 tab Pantoprazole Sodium (Protonix Ec Tab) 20 mg PO DAILY [facility] Last Admin: 05/22/17 09:05 Dose: 20 mg Rosuvastatin Calcium (Crestor) 20 mg PO HS [facility] Last Admin: 05/22/17 23:15 Dose: 20 mg Sacubitril/Valsartan (Entresto 24 Mg-26 Mg) 1 tab PO DAILY [facility] Last Admin: 05/22/17 09:06 Dose: 1 tab Fluticasone/Salmeterol (Advair Diskus 100/50) 1 puff INH RQ12 [facility] Last Admin: 05/22/17 20:21 Dose: 1 puff Tamsulosin HCl (Flomax) 0.4 mg PO DAILY [facility] Last Admin: 05/22/17 09:03 Dose: 0.4 mg - Labs Labs: 05/22/17 06:18 05/22/17 02:13 - Head Exam Head Exam: ATRAUMATIC, NORMAL INSPECTION - Eye Exam Eye Exam: EOMI, PERRL Pupil Exam: NORMAL ACCOMODATION - ENT Exam ENT Exam: Mucous Membranes Moist - Neck Exam Neck Exam: Full ROM, Normal Inspection - Respiratory Exam Respiratory Exam: Clear to Ausculation Bilateral, NORMAL BREATHING PATTERN - Cardiovascular Exam Cardiovascular Exam: Irregular Rhythm, +S1, +S2 - GI/Abdominal Exam GI & Abdominal Exam: Soft, Normal Bowel Sounds - Extremities Exam Extremities Exam: Full ROM - Back Exam Back Exam: NORMAL INSPECTION - Neurological Exam Neurological Exam: Alert, Awake, Oriented x3 - Psychiatric Exam Psychiatric exam: Normal Mood - Skin Skin Exam: Warm Assessment and Plan - Assessment and Plan (Free Text) Assessment: 1. S/P V tach On Amiodorone drip. Switch over to amiodorone 400 po bid D/C Sotalol Continue Bisoprololl Follow lytes D/W Dr. Salmeron for futher mgt 2. CAD s/p CABG s/p Cath Non interventional medical mgt
[2017-05-23 07:33] LABS: CHLORIDE 104 mmol/L (98-107); SODIUM 140 mmol/L (132-148)
[2017-05-23 07:34] LABS: POTASSIUM 4.5 mmol/L (3.6-5.2)
[2017-05-23 07:36] LABS: ALB/GLOB RATIO 1.5 (1.0-2.1); ALKALINE PHOSPHATASE 41 U/L (38-126); ALT/SGPT 40 U/L (21-72); AST/SGOT 28 U/L (17-59); BILIRUBIN,TOTAL 1.2 mg/dL (0.2-1.3); BLOOD UREA NITROGEN 36 mg/dL (9-20); CARBON DIOXIDE 25 mmol/L (22-30); GFR AFRICAN-AMERICAN > 60; GLUCOSE,RANDOM 105 mg/dL (75-110); TOTAL PROTEIN 6.9 g/dL (6.3-8.3)
[2017-05-23 07:37] LABS: CALCIUM 8.8 mg/dl (8.6-10.4); MAGNESIUM 2.2 mg/dL (1.6-2.3); PHOSPHOROUS 4.2 mg/dL (2.5-4.5)
[2017-05-23] MEDS: Fluticasone-Salmeterol 100-50mcg Diskus INH SCH ×2 (09:50→19:34)
[2017-05-23] MEDS: Pantoprazole 20 mg EC Tab PO SCH (10:24)
[2017-05-23 10:49] LABS: EOSINOPHIL 5 % (0-4); NEUTROPHIL 77 % (50-75); TOTAL CELLS COUNTED 100
[2017-05-23] MEDS: Sacubitril/Valsartan 24-26mg Tab PO SCH (11:14)
[2017-05-23] MEDS: Multiple Vitamins Tab PO SCH (11:14)
--- NOTE | 2017-05-23 12:37 | CP.PCM.PN ---
Subjective - Date & Time of Evaluation Date of Evaluation: 05/23/17 Time of Evaluation: 12:34 - Subjective Subjective: Sitting in bed. No new episodes of VT. Telemetry 100% V paved rhythm Objective - Vital Signs/Intake and Output Vital Signs (last 24 hours): Temp Pulse Resp BP Pulse Ox 98.1 F 80 22 116/69 98 05/23/17 07:38 05/23/17 08:09 05/23/17 08:09 05/23/17 10:23 05/23/17 08:09 Intake and Output: 05/23/17 05/23/17 06:59 18:59 Intake Total 349.8 Output Total 500 Balance -150.2 - Medications Medications: Current Medications Amiodarone HCl (Cordarone) 200 mg PO TID [facility] Apixaban (Eliquis) 2.5 mg PO BID [facility] Last Admin: 05/23/17 10:23 Dose: 2.5 mg Aspirin (Ecotrin) 81 mg PO DAILY [facility] Last Admin: 05/23/17 11:14 Dose: 81 mg Bisoprolol Fumarate (Zebeta) 5 mg PO BID [facility] Last Admin: 05/23/17 10:24 Dose: 5 mg Cyanocobalamin (Vitamin B12 1000 Mcg Tab) 1,000 mcg PO DAILY [facility] Last Admin: 05/23/17 10:23 Dose: 1,000 mcg Ergocalciferol (Drisdol 50,000 Intl Units Cap) 1 cap PO QWK [facility] Last Admin: 05/22/17 09:20 Dose: 1 cap Finasteride (Proscar) 5 mg PO DAILY [facility] Last Admin: 05/23/17 10:24 Dose: 5 mg Folic Acid (Folic Acid) 1 mg PO DAILY [facility] Last Admin: 05/23/17 11:14 Dose: 1 mg Furosemide (Lasix) 40 mg PO DAILY [facility] Last Admin: 05/23/17 10:23 Dose: 40 mg Home Med (Eplerenone [Eplerenone]) 25 mg PO DAILY [facility] Amiodarone HCl 900 mg/ (Dextrose) 500 mls @ 16.66 mls/hr IV .Q24H ONE; 0.5 MG/ MIN PRN Reason: Protocol Stop: 05/24/17 03:59 Last Admin: 05/23/17 04:00 Dose: 16.66 mls/hr Multivitamins (Hexavitamin) 1 tab PO DAILY [facility] Last Admin: 05/23/17 11:14 Dose: 1 tab Pantoprazole Sodium (Protonix Ec Tab) 20 mg PO DAILY [facility] Last Admin: 05/23/17 10:24 Dose: 20 mg Rosuvastatin Calcium (Crestor) 20 mg PO HS [facility] Last Admin: 05/22/17 23:15 Dose: 20 mg Sacubitril/Valsartan (Entresto 24 Mg-26 Mg) 1 tab PO DAILY [facility] Last Admin: 05/23/17 11:14 Dose: 1 tab Fluticasone/Salmeterol (Advair Diskus 100/50) 1 puff INH RQ12 DALI Last Admin: 05/23/17 09:50 Dose: 1 puff Tamsulosin HCl (Flomax) 0.4 mg PO DAILY [facility] Last Admin: 05/23/17 11:14 Dose: 0.4 mg - Labs Labs: 05/23/17 07:10 05/23/17 07:10 - Head Exam Head Exam: NORMOCEPHALIC - Neck Exam Neck Exam: Normal Inspection - Respiratory Exam Respiratory Exam: NORMAL BREATHING PATTERN - Cardiovascular Exam Cardiovascular Exam: REGULAR RHYTHM Additional comments: 100% V paced rhythm. - Extremities Exam Extremities Exam: Calf Tenderness, Normal Inspection - Neurological Exam Neurological Exam: Alert, Oriented x3 Assessment and Plan (1) Ventricular tachyarrhythmia Assessment & Plan: No new episodes of VT, Getting IV Amiodarone, After IV, Switch tp PO maintenance dose. Maintain electrolyte balance. Status: Acute (2) Acute on chronic systolic (congestive) heart failure Assessment & Plan: Diuretics, daily Is and Os with weights. Fluid restriction to 1.5 litter in 24/ H. Status: Acute
--- NOTE | 2017-05-23 15:48 | CARD ---
APPROVED REPORT EKG Measurement Heart [id number] <Conclusion> Ventricular-paced rhythm Abnormal ECG
--- NOTE | 2017-05-23 16:31 | CP.CCUPN ---
CCU Subjective - Physician Review Events Since Last Encounter (Free Text): 05/23/17 16:30 no complaints. CCU Objective - Vital Signs / Intake & Output Vital Signs (Last 4 hours): Vital Signs Pulse Resp BP Pulse Ox 05/23/17 14:09 80 32 H 107/59 L 98 05/23/17 13:09 80 24 111/64 99 Intake and Output (Last 8hrs): Intake & Output 05/23/17 05/23/17 05/23/17 06:59 14:59 22:59 Intake Total 216.6 483.5 Output Total 300 375 Balance -83.4 108.5 Intake: Intake, IV Amount 216.6 83.5 Right Forearm 216.6 83.5 Oral 400 Output: Urine 300 375 Urine, Voided 300 375 - Physical Exam Head: Positive for: Atraumatic, Normocephalic Pupils: Positive for: PERRL Extroacular Muscles: Positive for: EOMI Mouth: Positive for: Moist Mucous Membranes Respiratory/Chest: Positive for: Clear to Auscultation. Negative for: Wheezes, Rales, Rhonchi Cardiovascular: Positive for: Regular Rate and Rhythm, Normal S1, S2 Abdomen: Positive for: Normal Bowel Sounds. Negative for: Tenderness Neurological: Positive for: Speech Normal Skin: Positive for: Warm, Dry, Rashes, Normal Color Psychiatric: Positive for: Alert, Oriented x 3, Normal Insight, Normal Concentration - Medications Active Medications: Active Medications Generic Name Dose Route Start Last Admin Trade Name Freq PRN Reason Stop Dose Admin Amiodarone HCl 200 mg 05/23/17 22:00 Cordarone PO TID DALI Apixaban 2.5 mg 05/22/17 10:00 05/23/17 10:23 Eliquis PO 2.5 mg BID DALI Administration Aspirin 81 mg 05/22/17 10:00 05/23/17 11:14 Ecotrin PO 81 mg DAILY DALI Administration Bisoprolol Fumarate 5 mg 05/22/17 10:00 05/23/17 10:24 Zebeta PO 5 mg BID [facility]ALI Administration Cyanocobalamin 1,000 mcg 05/22/17 10:00 05/23/17 10:23 Vitamin B12 1000 Mcg Tab PO 1,000 mcg DAILY [facility] Administration Ergocalciferol 1 cap 05/22/17 10:00 05/22/17 09:20 Drisdol 50,000 Intl Units Cap PO 1 cap QWK [facility]I Administration Finasteride 5 mg 05/22/17 10:00 05/23/17 10:24 Proscar PO 5 mg DAILY [facility]I Administration Folic Acid 1 mg 05/22/17 10:00 05/23/17 11:14 Folic Acid PO 1 mg DAILY [facility] Administration Furosemide 40 mg 05/22/17 10:00 05/23/17 10:23 Lasix PO 40 mg DAILY [facility] Administration Home Med 25 mg 05/22/17 10:00 Eplerenone [Eplerenone] PO DAILY [facility] Amiodarone HCl 900 mg/ 500 mls @ 16.66 mls/hr 05/23/17 04:00 05/23/17 04:00 Dextrose IV 05/24/17 03:59 16.66 mls/hr .Q24H ONE Administration Protocol 0.5 MG/MIN Multivitamins 1 tab 05/22/17 10:00 05/23/17 11:14 Hexavitamin PO 1 tab DAILY [facility] Administration Pantoprazole Sodium 20 mg 05/22/17 10:00 05/23/17 10:24 Protonix Ec Tab PO 20 mg DAILY [facility] Administration Rosuvastatin Calcium 20 mg 05/21/17 22:00 05/22/17 23:15 Crestor PO 20 mg HS [facility] Administration Sacubitril/Valsartan 1 tab 05/22/17 10:00 05/23/17 11:14 Entresto 24 Mg-26 Mg PO 1 tab DAILY [facility] Administration Fluticasone/Salmeterol 1 puff 05/22/17 20:00 05/23/17 09:50 Advair Diskus 100/50 INH 1 puff RQ12 [facility] Administration Tamsulosin HCl 0.4 mg 05/22/17 10:00 05/23/17 11:14 Flomax PO 0.4 mg DAILY [facility] Administration - Patient Studies Lab Studies: Microbiology Studies 05/21/17 16:35 MRSA Culture (Admit) - Final Naris MRSA NOT DETECTED Lab Studies 05/23/17 05/23/17 Range/Units 07:10 07:10 WBC 13.7 H D (4.8-10.8) K/uL RBC 3.83 L (4.40-5.90) Mil/uL Hgb 12.5 (12.0-18.0) g/dL Hct 37.1 (35.0-51.0) % MCV 96.8 H (80.0-94.0) fL MCH 32.5 H (27.0-31.0) pg MCHC 33.6 (33.0-37.0) g/dL RDW 15.0 H (11.5-14.5) % Plt Count 156 (130-400) K/uL MPV 9.2 (7.2-11.7) fL Neut % (Auto) 81.4 H (50.0-75.0) % Lymph % (Auto) 7.7 L (20.0-40.0) % [place] % (Auto) 9.1 (0.0-10.0) % Eos % (Auto) 1.3 (0.0-4.0) % Baso % (Auto) 0.5 (0.0-2.0) % Neut # 11.2 H (1.8-7.0) K/uL Lymph # 1.1 (1.0-4.3) K/uL [place] # 1.2 H (0.0-0.8) K/uL Eos # 0.2 (0.0-0.7) K/uL Baso # 0.1 (0.0-0.2) K/uL Neutrophils % (Manual) 77 H (50-75) % Band Neutrophils % 1 (0-2) % Lymphocytes % (Manual) 8 L (20-40) % Monocytes % (Manual) 9 (0-10) % Eosinophils % (Manual) 5 H (0-4) % Platelet Estimate Normal (NORMAL) Anisocytosis (manual) Slight Macrocytosis (manual) Slight Ovalocytes Slight Sodium 140 (132-148) mmol/L Potassium 4.5 (3.6-5.2) mmol/L Chloride 104 (98-107) mmol/L Carbon Dioxide 25 (22-30) mmol/L Anion Gap 17 (10-20) BUN 36 H (9-20) mg/dL Creatinine 1.3 (0.8-1.5) MG/DL Est GFR ( Amer) > 60 Est GFR (Non-Af Amer) 53 Random Glucose 105 (75-110) mg/dL Calcium 8.8 (8.6-10.4) mg/dl Phosphorus 4.2 (2.5-4.5) mg/dL Magnesium 2.2 (1.6-2.3) mg/dL Total Bilirubin 1.2 (0.2-1.3) mg/dL AST 28 (17-59) U/L ALT 40 (21-72) U/L Alkaline Phosphatase 41 (38-126) U/L Total Protein 6.9 (6.3-8.3) g/dL Albumin 4.1 (3.5-5.0) g/dL Globulin 2.8 (2.2-3.9) gm/dL Albumin/Globulin Ratio 1.5 (1.0-2.1) Laboratory Results - last 24 hr 05/23/17 05/23/17 07:10 07:10 WBC 13.7 H D RBC 3.83 L Hgb 12.5 Hct 37.1 MCV 96.8 H MCH 32.5 H MCHC 33.6 RDW 15.0 H Plt Count 156 MPV 9.2 Neut % (Auto) 81.4 H Lymph % (Auto) 7.7 L [place] % (Auto) 9.1 Eos % (Auto) 1.3 Baso % (Auto) 0.5 Neut # 11.2 H Lymph # 1.1 [place] # 1.2 H Eos # 0.2 Baso # 0.1 Neutrophils % (Manual) 77 H Band Neutrophils % 1 Lymphocytes % (Manual) 8 L Monocytes % (Manual) 9 Eosinophils % (Manual) 5 H Platelet Estimate Normal Anisocytosis (manual) Slight Macrocytosis (manual) Slight Ovalocytes Slight Sodium 140 Potassium 4.5 Chloride 104 Carbon Dioxide 25 Anion Gap 17 BUN 36 H Creatinine 1.3 Est GFR ( Amer) > 60 Est GFR (Non-Af Amer) 53 Random Glucose 105 Calcium 8.8 Phosphorus 4.2 Magnesium 2.2 Total Bilirubin 1.2 AST 28 ALT 40 Alkaline Phosphatase 41 Total Protein 6.9 Albumin 4.1 Globulin 2.8 Albumin/Globulin Ratio 1.5 EKG/Cardiology Studies: Cardiology / EKG Studies 05/23/17 07:30 EKG [ELECTROCARDIOGRAM] DAILY Comment: Mode Of Transportation: Reason For Exam: cardiac arrhythmias 05/24/17 07:30 EKG [ELECTROCARDIOGRAM] DAILY Comment: Mode Of Transportation: Reason For Exam: cardiac arrhythmias 05/25/17 07:30 EKG [ELECTROCARDIOGRAM] DAILY Comment: Mode Of Transportation: Reason For Exam: cardiac arrhythmias 05/26/17 07:30 EKG [ELECTROCARDIOGRAM] DAILY Comment: Mode Of Transportation: Reason For Exam: cardiac arrhythmias Fingerstick Blood Sugar Results: 169 Review of Systems - Review of Systems All systems: reviewed and no additional remarkable complaints except (nothing) Critical Care Progress Note - Nutrition Nutrition: Nutrition Category Date Time Status Heart Healthy Diet [DIET] Diets 05/22/17 Breakfast Active Assessment/Plan (1) Ventricular tachyarrhythmia Assessment and plan: 81yo M. PMHx BPH, HTN, CAD, [place] (1992), AICD, systolic CHF (EF -30%, 05/06/17), Afib on Apixaban. p/w Vtach without AICD firing. Neuro: alert and oriented x 3 Pulm: no acute issues, breathing spontaneously on nasal canula CV: hemodynamically stable now. Patient went into Vtach with pulses (05/22) converted to sinus with lidocaine push, now finishing amiodarone loading to oral. AICD did not fire because heart rate was below AICD set rate. AFib continue bisoprolol for rate control. HTN continue sacubitril/Valsartan. Hem: no acute issues, aspirin for CAD. Renal: no acute issues. BPH continue finasteride and tamsulosin. Endo: no acute issues GI: heart healthy diet ID: no acute issues DVT proph - Eliquis GI proph - protonix Code status - full code Critical Care Time spent 35 minutes Multi-disciplinary rounds were performed with house staff, nursing, speech therapy, respiratory therapy, pharmacy and nutrition with integrated input from the primary team/attending and other consulting services. The documented time is cumulative and includes review of patient data/exams/labs/chart review and examination of the patient on rounds and throughout the day; time is exclusive of any procedures or teaching time. Current Visit: Yes Status: Acute
--- NOTE | 2017-05-23 23:43 | CP.PCM.PN ---
Subjective - Date & Time of Evaluation Date of Evaluation: 05/23/17 Time of Evaluation: 17:00 - Subjective Subjective: Patient seen and evaluated jose l chest pain and dyspnea Patient off Sotolol On Amio 200 tid If patient fails Amio, Dr. Salmeron may consider VT ablation Objective - Vital Signs/Intake and Output Vital Signs (last 24 hours): Temp Pulse Resp BP Pulse Ox 98.5 F 81 21 99/53 L 96 05/23/17 20:00 05/23/17 20:13 05/23/17 20:13 05/23/17 20:13 05/23/17 20:13 Intake and Output: 05/23/17 05/24/17 18:59 06:59 Intake Total 583.7 33.4 Output Total 825 250 Balance -241.3 -216.6 - Medications Medications: Current Medications Amiodarone HCl (Cordarone) 200 mg PO TID [facility] Last Admin: 05/23/17 21:18 Dose: 200 mg Apixaban (Eliquis) 2.5 mg PO BID [facility] Last Admin: 05/23/17 18:28 Dose: 2.5 mg Aspirin (Ecotrin) 81 mg PO DAILY [facility] Last Admin: 05/23/17 11:14 Dose: 81 mg Bisoprolol Fumarate (Zebeta) 5 mg PO BID [facility] Last Admin: 05/23/17 18:28 Dose: Not Given Cyanocobalamin (Vitamin B12 1000 Mcg Tab) 1,000 mcg PO DAILY [facility] Last Admin: 05/23/17 10:23 Dose: 1,000 mcg Ergocalciferol (Drisdol 50,000 Intl Units Cap) 1 cap PO QWK [facility] Last Admin: 05/22/17 09:20 Dose: 1 cap Finasteride (Proscar) 5 mg PO DAILY [facility] Last Admin: 05/23/17 10:24 Dose: 5 mg Folic Acid (Folic Acid) 1 mg PO DAILY [facility] Last Admin: 05/23/17 11:14 Dose: 1 mg Furosemide (Lasix) 40 mg PO DAILY [facility] Last Admin: 05/23/17 10:23 Dose: 40 mg Home Med (Eplerenone [Eplerenone]) 25 mg PO DAILY [facility] Amiodarone HCl 900 mg/ (Dextrose) 500 mls @ 16.66 mls/hr IV .Q24H ONE; 0.5 MG/ MIN PRN Reason: Protocol Stop: 05/24/17 03:59 Last Admin: 05/23/17 04:00 Dose: 16.66 mls/hr Multivitamins (Hexavitamin) 1 tab PO DAILY [facility] Last Admin: 05/23/17 11:14 Dose: 1 tab Pantoprazole Sodium (Protonix Ec Tab) 20 mg PO DAILY [facility] Last Admin: 05/23/17 10:24 Dose: 20 mg Rosuvastatin Calcium (Crestor) 20 mg PO HS [facility] Last Admin: 05/23/17 21:18 Dose: 20 mg Sacubitril/Valsartan (Entresto 24 Mg-26 Mg) 1 tab PO DAILY [facility] Last Admin: 05/23/17 11:14 Dose: 1 tab Fluticasone/Salmeterol (Advair Diskus 100/50) 1 puff INH RQ12 [facility] Last Admin: 05/23/17 19:34 Dose: 1 puff Tamsulosin HCl (Flomax) 0.4 mg PO DAILY [facility] Last Admin: 05/23/17 11:14 Dose: 0.4 mg - Labs Labs: 05/23/17 07:10 05/23/17 07:10
[2017-05-24 05:47] LABS: BASO % 0.4 % (0.0-2.0); EOS # 0.2 K/uL (0.0-0.7); EOS % 1.7 % (0.0-4.0); HEMATOCRIT 36.4 % (35.0-51.0); LYMPH # 1.2 K/uL (1.0-4.3); LYMPH % 11.5 % (20.0-40.0); MEAN CELL VOLUME 97.5 fL (80.0-94.0); MEAN CORPUSCULAR HEMOGLOBIN 32.6 pg (27.0-31.0); MEAN CORPUSCULAR HGB CONC 33.4 g/dL (33.0-37.0); MEAN PLATELET VOLUME 8.7 fL (7.2-11.7); MONO # 1.1 K/uL (0.0-0.8); MONO % 10.8 % (0.0-10.0); RED CELL DISTRIBUTION WIDTH 15.4 % (11.5-14.5); WHITE BLOOD COUNT 10.4 K/uL (4.8-10.8)
[2017-05-24 05:59] LABS: ALB/GLOB RATIO 1.4 (1.0-2.1); ALKALINE PHOSPHATASE 43 U/L (38-126); ALT/SGPT 34 U/L (21-72); AST/SGOT 16 U/L (17-59); BILIRUBIN,TOTAL 1.3 mg/dL (0.2-1.3); BLOOD UREA NITROGEN 33 mg/dL (9-20); CARBON DIOXIDE 24 mmol/L (22-30); CHLORIDE 102 mmol/L (98-107); GFR AFRICAN-AMERICAN > 60; GLUCOSE,RANDOM 85 mg/dL (75-110); MAGNESIUM 2.1 mg/dL (1.6-2.3); POTASSIUM 3.9 mmol/L (3.6-5.2); SODIUM 140 mmol/L (132-148); TOTAL PROTEIN 6.7 g/dL (6.3-8.3)
[2017-05-24] MEDS: Pantoprazole 20 mg EC Tab PO SCH (09:28)
[2017-05-24] MEDS: Multiple Vitamins Tab PO SCH (09:28)
[2017-05-24] MEDS: Sacubitril/Valsartan 24-26mg Tab PO SCH (09:28)
[2017-05-24] MEDS: Fluticasone-Salmeterol 100-50mcg Diskus INH SCH ×2 (10:13→19:27)
--- NOTE | 2017-05-24 10:22 | CARD ---
APPROVED REPORT EKG Measurement Heart [id number] <Conclusion> Ventricular-paced rhythm Abnormal ECG
--- NOTE | 2017-05-24 11:25 | CP.PCM.PN ---
Subjective - Date & Time of Evaluation Date of Evaluation: 05/24/17 Time of Evaluation: 11:23 - Subjective Subjective: Some chest discomfort but no shortness of breath. No palpitation. Objective - Vital Signs/Intake and Output Vital Signs (last 24 hours): Temp Pulse Resp BP Pulse Ox 98.4 F 80 21 97/53 L 98 05/24/17 08:00 05/24/17 10:09 05/24/17 10:09 05/24/17 10:09 05/24/17 10:09 Intake and Output: 05/24/17 05/24/17 06:59 18:59 Intake Total 513.4 500 Output Total 826 372 Balance -312.6 128 - Medications Medications: Current Medications Amiodarone HCl (Cordarone) 200 mg PO TID [facility] Last Admin: 05/24/17 09:28 Dose: 200 mg Apixaban (Eliquis) 2.5 mg PO BID [facility] Last Admin: 05/24/17 09:29 Dose: 2.5 mg Aspirin (Ecotrin) 81 mg PO DAILY [facility] Last Admin: 05/24/17 09:29 Dose: 81 mg Bisoprolol Fumarate (Zebeta) 5 mg PO BID [facility] Last Admin: 05/24/17 09:29 Dose: 5 mg Cyanocobalamin (Vitamin B12 1000 Mcg Tab) 1,000 mcg PO DAILY [facility] Last Admin: 05/24/17 09:28 Dose: 1,000 mcg Ergocalciferol (Drisdol 50,000 Intl Units Cap) 1 cap PO QWK [facility] Last Admin: 05/22/17 09:20 Dose: 1 cap Finasteride (Proscar) 5 mg PO DAILY [facility] Last Admin: 05/24/17 09:28 Dose: 5 mg Folic Acid (Folic Acid) 1 mg PO DAILY [facility] Last Admin: 05/24/17 09:28 Dose: 1 mg Furosemide (Lasix) 40 mg PO DAILY [facility] Last Admin: 05/24/17 09:28 Dose: 40 mg Home Med (Eplerenone [Eplerenone]) 25 mg PO DAILY [facility] Multivitamins (Hexavitamin) 1 tab PO DAILY [facility] Last Admin: 05/24/17 09:28 Dose: 1 tab Pantoprazole Sodium (Protonix Ec Tab) 20 mg PO DAILY [facility] Last Admin: 05/24/17 09:28 Dose: 20 mg Rosuvastatin Calcium (Crestor) 20 mg PO HS [facility] Last Admin: 05/23/17 21:18 Dose: 20 mg Sacubitril/Valsartan (Entresto 24 Mg-26 Mg) 1 tab PO DAILY [facility] Last Admin: 05/24/17 09:28 Dose: 1 tab Fluticasone/Salmeterol (Advair Diskus 100/50) 1 puff INH RQ12 [facility] Last Admin: 05/24/17 10:13 Dose: 1 puff Tamsulosin HCl (Flomax) 0.4 mg PO DAILY [facility] Last Admin: 05/24/17 09:28 Dose: 0.4 mg - Labs Labs: 05/24/17 05:43 05/24/17 05:43 - Neck Exam Neck Exam: Normal Inspection - Respiratory Exam Respiratory Exam: NORMAL BREATHING PATTERN - Cardiovascular Exam Cardiovascular Exam: Irregular Rhythm - Extremities Exam Extremities Exam: Normal Inspection - Neurological Exam Neurological Exam: Alert, Oriented x3 Assessment and Plan (1) Ventricular tachyarrhythmia Assessment & Plan: No, new episodes. P O amidarone. maintain electrolyte balance. Status: Acute (2) Acute on chronic systolic (congestive) heart failure Assessment & Plan: SOB have improved. No leg edema. Fluid restriction and low salt diet with daily weights and adjustment of diuretics as needed. Status: Acute
--- NOTE | 2017-05-24 17:03 | CP.PCM.PN ---
Subjective - Date & Time of Evaluation Date of Evaluation: 05/24/17 Time of Evaluation: 17:01 - Subjective Subjective: had palpitations today 3-4 times no vtach seen Objective - Vital Signs/Intake and Output Vital Signs (last 24 hours): Temp Pulse Resp BP Pulse Ox 98.0 F 80 26 H 101/56 L 98 05/24/17 16:00 05/24/17 16:09 05/24/17 16:09 05/24/17 16:09 05/24/17 16:09 Intake and Output: 05/24/17 05/24/17 06:59 18:59 Intake Total 513.4 1000 Output Total 826 372 Balance -312.6 628 - Medications Medications: Current Medications Amiodarone HCl (Cordarone) 200 mg PO TID [facility] Last Admin: 05/24/17 14:00 Dose: 200 mg Apixaban (Eliquis) 2.5 mg PO BID [facility] Last Admin: 05/24/17 09:29 Dose: 2.5 mg Aspirin (Ecotrin) 81 mg PO DAILY [facility] Last Admin: 05/24/17 09:29 Dose: 81 mg Bisoprolol Fumarate (Zebeta) 5 mg PO BID [facility] Last Admin: 05/24/17 09:29 Dose: 5 mg Cyanocobalamin (Vitamin B12 1000 Mcg Tab) 1,000 mcg PO DAILY [facility] Last Admin: 05/24/17 09:28 Dose: 1,000 mcg Ergocalciferol (Drisdol 50,000 Intl Units Cap) 1 cap PO QWK [facility] Last Admin: 05/22/17 09:20 Dose: 1 cap Finasteride (Proscar) 5 mg PO DAILY [facility] Last Admin: 05/24/17 09:28 Dose: 5 mg Folic Acid (Folic Acid) 1 mg PO DAILY [facility] Last Admin: 05/24/17 09:28 Dose: 1 mg Furosemide (Lasix) 40 mg PO DAILY [facility] Last Admin: 05/24/17 09:28 Dose: 40 mg Home Med (Eplerenone [Eplerenone]) 25 mg PO DAILY [facility] Multivitamins (Hexavitamin) 1 tab PO DAILY [facility] Last Admin: 05/24/17 09:28 Dose: 1 tab Pantoprazole Sodium (Protonix Ec Tab) 20 mg PO DAILY [facility] Last Admin: 05/24/17 09:28 Dose: 20 mg Rosuvastatin Calcium (Crestor) 20 mg PO HS [facility] Last Admin: 05/23/17 21:18 Dose: 20 mg Sacubitril/Valsartan (Entresto 24 Mg-26 Mg) 1 tab PO DAILY [facility] Last Admin: 05/24/17 09:28 Dose: 1 tab Fluticasone/Salmeterol (Advair Diskus 100/50) 1 puff INH RQ12 [facility] Last Admin: 05/24/17 10:13 Dose: 1 puff Tamsulosin HCl (Flomax) 0.4 mg PO DAILY [facility] Last Admin: 05/24/17 09:28 Dose: 0.4 mg - Labs Labs: 05/24/17 05:43 05/24/17 05:43 - Constitutional Appears: Well, No Acute Distress - Head Exam Head Exam: ATRAUMATIC, NORMAL INSPECTION - Eye Exam Eye Exam: Normal appearance - ENT Exam ENT Exam: Mucous Membranes Moist - Respiratory Exam Respiratory Exam: Clear to Ausculation Bilateral, NORMAL BREATHING PATTERN. absent: Rales, Rhonchi, Wheezes - Cardiovascular Exam Cardiovascular Exam: REGULAR RHYTHM, +S1, +S2. absent: Murmur - GI/Abdominal Exam GI & Abdominal Exam: Soft, Normal Bowel Sounds - Neurological Exam Neurological Exam: Alert, Awake, Oriented x3 - Psychiatric Exam Psychiatric exam: Normal Affect, Normal Mood - Skin Skin Exam: Normal Color Assessment and Plan - Assessment and Plan (Free Text) Assessment: vtach- non sustained now on amio monitor
--- NOTE | 2017-05-24 22:03 | CP.PCM.PN ---
Subjective - Date & Time of Evaluation Date of Evaluation: 05/24/17 Time of Evaluation: 08:10 - Subjective Subjective: Patient seen and evaluated Denies chest pain and dyspnea Objective - Vital Signs/Intake and Output Vital Signs (last 24 hours): Temp Pulse Resp BP Pulse Ox 98.0 F 80 25 H 95/53 L 85 L 05/24/17 16:00 05/24/17 20:09 05/24/17 20:09 05/24/17 20:09 05/24/17 20:09 Intake and Output: 05/24/17 05/25/17 18:59 06:59 Intake Total 1000 Output Total 572 Balance 428 - Medications Medications: Current Medications Amiodarone HCl (Cordarone) 200 mg PO TID [facility] Last Admin: 05/24/17 18:35 Dose: 200 mg Apixaban (Eliquis) 2.5 mg PO BID [facility] Last Admin: 05/24/17 18:35 Dose: 2.5 mg Aspirin (Ecotrin) 81 mg PO DAILY [facility] Last Admin: 05/24/17 09:29 Dose: 81 mg Bisoprolol Fumarate (Zebeta) 5 mg PO BID [facility] Last Admin: 05/24/17 18:35 Dose: 5 mg Cyanocobalamin (Vitamin B12 1000 Mcg Tab) 1,000 mcg PO DAILY [facility] Last Admin: 05/24/17 09:28 Dose: 1,000 mcg Ergocalciferol (Drisdol 50,000 Intl Units Cap) 1 cap PO QWK [facility] Last Admin: 05/22/17 09:20 Dose: 1 cap Finasteride (Proscar) 5 mg PO DAILY [facility] Last Admin: 05/24/17 09:28 Dose: 5 mg Folic Acid (Folic Acid) 1 mg PO DAILY [facility] Last Admin: 05/24/17 09:28 Dose: 1 mg Furosemide (Lasix) 40 mg PO DAILY [facility] Last Admin: 05/24/17 09:28 Dose: 40 mg Home Med (Eplerenone [Eplerenone]) 25 mg PO DAILY [facility] Multivitamins (Hexavitamin) 1 tab PO DAILY [facility] Last Admin: 05/24/17 09:28 Dose: 1 tab Pantoprazole Sodium (Protonix Ec Tab) 20 mg PO DAILY [facility] Last Admin: 05/24/17 09:28 Dose: 20 mg Rosuvastatin Calcium (Crestor) 20 mg PO HS [facility] Last Admin: 05/23/17 21:18 Dose: 20 mg Sacubitril/Valsartan (Entresto 24 Mg-26 Mg) 1 tab PO DAILY [facility] Last Admin: 05/24/17 09:28 Dose: 1 tab Fluticasone/Salmeterol (Advair Diskus 100/50) 1 puff INH RQ12 [facility] Last Admin: 05/24/17 19:27 Dose: 1 puff Tamsulosin HCl (Flomax) 0.4 mg PO DAILY [facility] Last Admin: 05/24/17 09:28 Dose: 0.4 mg - Labs Labs: 05/24/17 05:43 05/24/17 05:43 - Head Exam Head Exam: ATRAUMATIC, NORMAL INSPECTION - Eye Exam Eye Exam: EOMI, PERRL Pupil Exam: NORMAL ACCOMODATION - ENT Exam ENT Exam: Mucous Membranes Moist, Normal Exam - Neck Exam Neck Exam: Full ROM, Normal Inspection - Respiratory Exam Respiratory Exam: Clear to Ausculation Bilateral, NORMAL BREATHING PATTERN - Cardiovascular Exam Cardiovascular Exam: REGULAR RHYTHM, +S1, +S2 - GI/Abdominal Exam GI & Abdominal Exam: Soft, Normal Bowel Sounds - Extremities Exam Extremities Exam: Full ROM - Back Exam Back Exam: NORMAL INSPECTION - Neurological Exam Neurological Exam: Alert, Awake, Oriented x3 - Psychiatric Exam Psychiatric exam: Normal Affect, Normal Mood - Skin Skin Exam: Warm Assessment and Plan - Assessment and Plan (Free Text) Assessment: 1. S/P V Tach.. Now on amiodorone 2. Isch CMP s/p BiV AICD 3. CAD s/p CABG and PCI Continue current dose of Amio
[2017-05-25 09:14] LABS: HEMATOCRIT 35.3 % (35.0-51.0); MEAN CORPUSCULAR HEMOGLOBIN 32.7 pg (27.0-31.0); MEAN CORPUSCULAR HGB CONC 34.3 g/dL (33.0-37.0); MEAN PLATELET VOLUME 8.6 fL (7.2-11.7); RED CELL DISTRIBUTION WIDTH 15.1 % (11.5-14.5); WHITE BLOOD COUNT 8.2 K/uL (4.8-10.8)
[2017-05-25 09:23] LABS: MEAN CELL VOLUME 95.2 fL (80.0-94.0)
[2017-05-25] MEDS: Sacubitril/Valsartan 24-26mg Tab PO SCH (09:34)
[2017-05-25] MEDS: Pantoprazole 20 mg EC Tab PO SCH (09:34)
[2017-05-25] MEDS: Multiple Vitamins Tab PO SCH (09:35)
[2017-05-25 09:41] LABS: ALB/GLOB RATIO 1.3 (1.0-2.1); ALKALINE PHOSPHATASE 40 U/L (38-126); ALT/SGPT 33 U/L (21-72); AST/SGOT 15 U/L (17-59); BILIRUBIN,TOTAL 1.4 mg/dL (0.2-1.3); BLOOD UREA NITROGEN 32 mg/dL (9-20); CARBON DIOXIDE 28 mmol/L (22-30); CHLORIDE 101 mmol/L (98-107); GFR AFRICAN-AMERICAN > 60; GLUCOSE,RANDOM 92 mg/dL (75-110); POTASSIUM 3.7 mmol/L (3.6-5.2); SODIUM 140 mmol/L (132-148); TOTAL PROTEIN 6.5 g/dL (6.3-8.3)
[2017-05-25] MEDS: Fluticasone-Salmeterol 100-50mcg Diskus INH SCH (11:14)
--- NOTE | 2017-05-25 15:36 | CP.PCM.DIS ---
<Mitzi Wright - Last Filed: 05/25/17 20:30> Provider - Provider Date of Admission: 05/21/17 12:27 Attending physician: Jeronimo Schreiber DO Time Spent in preparation of Discharge (in minutes): 40 Hospital Course - Lab Results Lab Results: Micro Results 05/21/17 16:35 Naris MRSA Culture (Admit) - Final MRSA NOT DETECTED Most Recent Lab Values WBC 8.2 K/uL (4.8-10.8) 05/25/17 09:01 RBC 3.71 Mil/uL (4.40-5.90) L 05/25/17 09:01 Hgb 12.1 g/dL (12.0-18.0) 05/25/17 09:01 Hct 35.3 % (35.0-51.0) 05/25/17 09:01 MCV 95.2 fL (80.0-94.0) H D 05/25/17 09:01 MCH 32.7 pg (27.0-31.0) H 05/25/17 09:01 MCHC 34.3 g/dL (33.0-37.0) 05/25/17 09:01 RDW 15.1 % (11.5-14.5) H 05/25/17 09:01 Plt Count 142 K/uL (130-400) 05/25/17 09:01 MPV 8.6 fL (7.2-11.7) 05/25/17 09:01 Neut % (Auto) 75.6 % (50.0-75.0) H 05/24/17 05:43 Lymph % (Auto) 11.5 % (20.0-40.0) L 05/24/17 05:43 [place] % (Auto) 10.8 % (0.0-10.0) H 05/24/17 05:43 Eos % (Auto) 1.7 % (0.0-4.0) 05/24/17 05:43 Baso % (Auto) 0.4 % (0.0-2.0) 05/24/17 05:43 Neut # 7.8 K/uL (1.8-7.0) H 05/24/17 05:43 Lymph # 1.2 K/uL (1.0-4.3) 05/24/17 05:43 [place] # 1.1 K/uL (0.0-0.8) H 05/24/17 05:43 Eos # 0.2 K/uL (0.0-0.7) 05/24/17 05:43 Baso # 0.0 K/uL (0.0-0.2) 05/24/17 05:43 Neutrophils % (Manual) 77 % (50-75) H 05/23/17 07:10 Band Neutrophils % 1 % (0-2) 05/23/17 07:10 Lymphocytes % (Manual) 8 % (20-40) L 05/23/17 07:10 Monocytes % (Manual) 9 % (0-10) 05/23/17 07:10 Eosinophils % (Manual) 5 % (0-4) H 05/23/17 07:10 Platelet Estimate Normal (NORMAL) 05/23/17 07:10 Anisocytosis (manual) Slight 05/23/17 07:10 Macrocytosis (manual) Slight 05/23/17 07:10 Ovalocytes Slight 05/23/17 07:10 Sodium 140 mmol/L (132-148) 05/25/17 09:01 Potassium 3.7 mmol/L (3.6-5.2) 05/25/17 09:01 Chloride 101 mmol/L (98-107) 05/25/17 09:01 Carbon Dioxide 28 mmol/L (22-30) 05/25/17 09:01 Anion Gap 16 (10-20) 05/25/17 09:01 BUN 32 mg/dL (9-20) H 05/25/17 09:01 Creatinine 1.2 MG/DL (0.8-1.5) 05/25/17 09:01 Est GFR ( Amer) > 60 05/25/17 09:01 Est GFR (Non-Af Amer) 58 05/25/17 09:01 Random Glucose 92 mg/dL (75-110) 05/25/17 09:01 Calcium 9.0 mg/dl (8.6-10.4) 05/25/17 09:01 Phosphorus 4.0 mg/dL (2.5-4.5) 05/24/17 05:43 Magnesium 2.1 mg/dL (1.6-2.3) 05/24/17 05:43 Total Bilirubin 1.4 mg/dL (0.2-1.3) H 05/25/17 09:01 AST 15 U/L (17-59) L 05/25/17 09:01 ALT 33 U/L (21-72) 05/25/17 09:01 Alkaline Phosphatase 40 U/L (38-126) 05/25/17 09:01 Total Creatine Kinase < 20 U/L (55-170) L 05/22/17 06:18 CK-MB (Mass) 0.61 ng/mL (0.0-3.38) 05/22/17 06:18 Troponin I 0.0140 ng/mL (0.00-0.120) 05/21/17 12:27 Troponin I, Quant 0.0820 ng/mL (0.00-0.120) 05/22/17 06:18 NT-Pro-B Natriuret Pep 2040 pg/mL (0-900) H 05/21/17 12:27 Total Protein 6.5 g/dL (6.3-8.3) 05/25/17 09:01 Albumin 3.6 g/dL (3.5-5.0) 05/25/17 09:01 Globulin 2.9 gm/dL (2.2-3.9) 05/25/17 09:01 Albumin/Globulin Ratio 1.3 (1.0-2.1) 05/25/17 09:01 - Hospital Course Hospital Course: CC: Chest Pain HPI: Patient is a 81 year old man with a PMHx of Myocardial Infarction in 1992, CAD, Ischemic cardiomyopathy, w/ AICD, Atrial Fibrillation, HTN and BPH, presented to the ED for evaluation of chest pain. Patient stated he ate breakfast this morning and was sitting in a chair when he began to have a squeezing/heavy feeling in his chest and a tingling sensation radiating in the left arm to his left hand. The patient informed his son who called an ambulance. The patient was found in V-Tach by EMS and was cardioverted in the ambulance. On arrival to the ED the patient was cool to touch, diaphoretic, faint and found to be in a ventricular paced rhythm. He admitted to dizziness. Otherwise the patient was awake, alert and oriented x3. He denied shortness of breath, cough, fever, chills, abdominal pain, diarrhea. The patient was recently admitted for an uneasy feeling in his chest on 05/06/17 and received a shock from his AICD at that time. Patient underwent a cardiac cath during that admission - which was notable for a hypotensive episode immediately following the cath and transfer to ICU. Cath results show RCA occlusion, diagonal occlusion, patent LAD w/ stent, presence of collaterals, not needing PCI. PMHx: * CAD w/ prior stent * Ischemic cardiomyopathy (EF 30%) w/ AICD * Atrial Fibrillation * CO 1992 * HTN * BPH PSHx: * Pacemaker placement * Stent placement x1 in 2010 * Multiple lipoma removals * Cataract removal x2 Family Hx: * Dad=DM * Mom=CVA SH: * Denies tobacco, EtOH, illicit drug use. * Lives with and son. 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 * Independent in his ADLs Meds: * Eloquis 2.5 BID * Dig 0.125 QD * Lasix 20 mg QD * Losarten 25mg QD * Statin 4mg QD * Crestor 20mg QD * Sodalol 160mg BID * Intresto 24/26 QD * Tamsulosin 0.4 QD * Eplerenone 25 QD * Finasteride 25 QD Allergies: NDKA Code: FULL CODE Hospital Course: 05/21/17: Patient was found to be in Ventricular Tachycardia by EMS and cardioverted in the field despite having an ACID. EKG performed in the ED and showed ventricular paced rhythm. CXR performed and showed poor inspiration with low lung volumes, crowded bronchovascular markings and mild bibasilar atelectasis, questionable small right effusion, multi lead pacemaker/ defibrillator noted. Patient admitted to the ICU under Dr. Reeves for severity of symptoms and put on telemetry. Cardiology was consulted: Dr. Ibrahim (supervising appraiser) and Dr Salmeron ( EP calciner operator helper) Patient started on Rosuvastain 20mg PO HS 05/22/17: EKG performed and showed ventricular paced rhythm Patient started on Eliquis 2.5mg PO BID, Aspirin 81mg PO daily, Bisoprolol 5mg PO BID, Vitamin B12 1000mcg PO daily, Ergocalciferol 1 cap PO Q weekly, Finasteride 5mg PO daily, Advair 1 puff Q12, Folic Acid 1mg PO daily, Lasix 40mg PO daily, Lidocaine 5ml IV one time dose, Multivitamin 1 tab PO daily, Protonix 20mg PO daily, Sacubitril/Valsartan 1 tab PO daily, Flomax 0.4mg PO daily 05/23/17: EKG performed and showed ventricular paced rhythm. Patient started on Amiodarone 200mg PO TID 05/24/17: Patient was transferred from ICU to Telemetry Medicine 05/25/17: Ekg performed and showed ventricular paced rhythm. Patient given Xanax 0.25mg PO and Colace 100mg PO one time doses. Patient stable for discharge per Dr. Schreiber. Patient to stop home medication called: beta paste Patient to continue all other home medications. Patient to start NEW home medication: Amiodarone 200mg twice daily by mouth Patient to follow up with Physician Surgeon Dr. Margot Salmeron in 1-2 weeks. Patient to follow up with primary care physician in 1-2 weeks. Patient to return to emergency room if symptoms return or worsen. This is a brief summary of events. For a complete course, refer to the medical record. Discharge Exam - Head Exam Head Exam: ATRAUMATIC, NORMAL INSPECTION, NORMOCEPHALIC - Eye Exam Eye Exam: EOMI, Normal appearance, PERRL Pupil Exam: NORMAL ACCOMODATION - ENT Exam ENT Exam: Mucous Membranes Moist - Respiratory Exam Respiratory Exam: Clear to PA & Lateral, NORMAL BREATHING PATTERN - Cardiovascular Exam Cardiovascular Exam: REGULAR RHYTHM, +S1, +S2 - GI/Abdominal Exam GI & Abdominal Exam: Normal Bowel Sounds, Soft. absent: Tenderness - Extremities Exam Extremities exam: normal inspection - Neurological Exam Neurological exam: Alert, Oriented x3 - Psychiatric Exam Psychiatric exam: Normal Affect, Normal Mood - Skin Skin Exam: Dry, Intact, Normal Color, Warm Discharge Plan - Discharge Medications Prescriptions: Amiodarone [Cordarone] 200 mg PO BID #60 tab - Follow Up Plan Condition: SERIOUS Disposition: HOME/ ROUTINE Instructions: Hypotension (DC), Dyspnea (GEN) Additional Instructions: STOP HOME MEDS CALLED BETAPASTE/ BETAPACE; CONTINUE ALL OTHER HOME MEDS START NEW HOME MEDICATION; AMIODARONE 200 MG PO TWICE A DAY FOLLOW UP WITH [facility], DR MARGOT SALMERON IN 1-2 WEEKS FOLLOW UP WITH THE PRIMARY PHYSICIAN IN 1-2 WEEKS RETURN TO ER IF SYMPTOMS RETURN OR WORSEN Referrals: Abena Salmeron MD [Staff Provider] - Filippo Luther MD [Staff Provider] - <Jeronimo Schreiber - Last Filed: 05/26/17 09:30> Provider - Provider Date of Admission: 05/21/17 12:27 Attending physician: Jeronimo Schreiber DO Hospital Course - Lab Results Lab Results: Micro Results 05/21/17 16:35 Naris MRSA Culture (Admit) - Final MRSA NOT DETECTED Most Recent Lab Values WBC 8.2 K/uL (4.8-10.8) 05/25/17 09:01 RBC 3.71 Mil/uL (4.40-5.90) L 05/25/17 09:01 Hgb 12.1 g/dL (12.0-18.0) 05/25/17 09:01 Hct 35.3 % (35.0-51.0) 05/25/17 09:01 MCV 95.2 fL (80.0-94.0) H D 05/25/17 09:01 MCH 32.7 pg (27.0-31.0) H 05/25/17 09:01 MCHC 34.3 g/dL (33.0-37.0) 05/25/17 09:01 RDW 15.1 % (11.5-14.5) H 05/25/17 09:01 Plt Count 142 K/uL (130-400) 05/25/17 09:01 MPV 8.6 fL (7.2-11.7) 05/25/17 09:01 Neut % (Auto) 75.6 % (50.0-75.0) H 05/24/17 05:43 Lymph % (Auto) 11.5 % (20.0-40.0) L 05/24/17 05:43 [place] % (Auto) 10.8 % (0.0-10.0) H 05/24/17 05:43 Eos % (Auto) 1.7 % (0.0-4.0) 05/24/17 05:43 Baso % (Auto) 0.4 % (0.0-2.0) 05/24/17 05:43 Neut # 7.8 K/uL (1.8-7.0) H 05/24/17 05:43 Lymph # 1.2 K/uL (1.0-4.3) 05/24/17 05:43 [place] # 1.1 K/uL (0.0-0.8) H 05/24/17 05:43 Eos # 0.2 K/uL (0.0-0.7) 05/24/17 05:43 Baso # 0.0 K/uL (0.0-0.2) 05/24/17 05:43 Neutrophils % (Manual) 77 % (50-75) H 05/23/17 07:10 Band Neutrophils % 1 % (0-2) 05/23/17 07:10 Lymphocytes % (Manual) 8 % (20-40) L 05/23/17 07:10 Monocytes % (Manual) 9 % (0-10) 05/23/17 07:10 Eosinophils % (Manual) 5 % (0-4) H 05/23/17 07:10 Platelet Estimate Normal (NORMAL) 05/23/17 07:10 Anisocytosis (manual) Slight 05/23/17 07:10 Macrocytosis (manual) Slight 05/23/17 07:10 Ovalocytes Slight 05/23/17 07:10 Sodium 140 mmol/L (132-148) 05/25/17 09:01 Potassium 3.7 mmol/L (3.6-5.2) 05/25/17 09:01 Chloride 101 mmol/L (98-107) 05/25/17 09:01 Carbon Dioxide 28 mmol/L (22-30) 05/25/17 09:01 Anion Gap 16 (10-20) 05/25/17 09:01 BUN 32 mg/dL (9-20) H 05/25/17 09:01 Creatinine 1.2 MG/DL (0.8-1.5) 05/25/17 09:01 Est GFR ( Amer) > 60 05/25/17 09:01 Est GFR (Non-Af Amer) 58 05/25/17 09:01 Random Glucose 92 mg/dL (75-110) 05/25/17 09:01 Calcium 9.0 mg/dl (8.6-10.4) 05/25/17 09:01 Phosphorus 4.0 mg/dL (2.5-4.5) 05/24/17 05:43 Magnesium 2.1 mg/dL (1.6-2.3) 05/24/17 05:43 Total Bilirubin 1.4 mg/dL (0.2-1.3) H 05/25/17 09:01 AST 15 U/L (17-59) L 05/25/17 09:01 ALT 33 U/L (21-72) 05/25/17 09:01 Alkaline Phosphatase 40 U/L (38-126) 05/25/17 09:01 Total Creatine Kinase < 20 U/L (55-170) L 05/22/17 06:18 CK-MB (Mass) 0.61 ng/mL (0.0-3.38) 05/22/17 06:18 Troponin I 0.0140 ng/mL (0.00-0.120) 05/21/17 12:27 Troponin I, Quant 0.0820 ng/mL (0.00-0.120) 05/22/17 06:18 NT-Pro-B Natriuret Pep 2040 pg/mL (0-900) H 05/21/17 12:27 Total Protein 6.5 g/dL (6.3-8.3) 05/25/17 09:01 Albumin 3.6 g/dL (3.5-5.0) 05/25/17 09:01 Globulin 2.9 gm/dL (2.2-3.9) 05/25/17 09:01 Albumin/Globulin Ratio 1.3 (1.0-2.1) 05/25/17 09:01 Attending/Attestation - Attestation I have personally seen and examined this patient.: Yes I have fully participated in the care of the patient.: Yes I have reviewed all pertinent clinical information, including history, physical exam and plan: Yes Notes (Text): Medical attending: Patient was seen and examined by me, agrees the above note by medical office specialist. As mentioned above the patient was previously on amiodarone drip. This was started after he was found to have on telemetry episodes of VT. he was then changed over to oral amiodarone. Since then he's been doing well. When I saw him , he asked to go home and reported that was not having chest pain, denied shortness breath, denied palpitations. On exam we also had him stand up and walk with us, he was able to do so on his own without any assistance and he was able to walk out of his room into the hallway and back. She denied feeling dizzy, denied feeling short of breath, denied having palpitations when he did this. I spoke with cardiology Dr. Ibrahim. The patient's can be discharged home with by mouth amiodarone, he will need to stop the sotalol that he was previously taking. I explained to this to the patient. The patient will need to follow-up with EP cardiology and also his CHF calciner operator helper. Thank you very much, Jeronimo Schreiber
--- NOTE | 2017-05-25 16:08 | CP.PCM.PN ---
Subjective - Date & Time of Evaluation Date of Evaluation: 05/25/17 Time of Evaluation: 16:05 - Subjective Subjective: Sitting in chair, denies any new complaints. Objective - Vital Signs/Intake and Output Vital Signs (last 24 hours): Temp Pulse Resp BP Pulse Ox 97.3 F L 81 27 H 96/55 L 95 05/25/17 12:00 05/25/17 13:49 05/25/17 13:49 05/25/17 13:49 05/25/17 13:49 Intake and Output: 05/25/17 05/25/17 06:59 18:59 Intake Total 480 600 Output Total 600 500 Balance -120 100 - Medications Medications: Current Medications Amiodarone HCl (Cordarone) 200 mg PO TID [facility] Last Admin: 05/25/17 13:49 Dose: 200 mg Apixaban (Eliquis) 2.5 mg PO BID [facility] Last Admin: 05/25/17 09:34 Dose: 2.5 mg Aspirin (Ecotrin) 81 mg PO DAILY [facility] Last Admin: 05/25/17 09:35 Dose: 81 mg Bisoprolol Fumarate (Zebeta) 5 mg PO BID [facility] Last Admin: 05/25/17 09:34 Dose: 5 mg Cyanocobalamin (Vitamin B12 1000 Mcg Tab) 1,000 mcg PO DAILY [facility] Last Admin: 05/25/17 09:35 Dose: 1,000 mcg Ergocalciferol (Drisdol 50,000 Intl Units Cap) 1 cap PO QWK [facility] Last Admin: 05/22/17 09:20 Dose: 1 cap Finasteride (Proscar) 5 mg PO DAILY [facility] Last Admin: 05/25/17 09:34 Dose: 5 mg Folic Acid (Folic Acid) 1 mg PO DAILY [facility] Last Admin: 05/25/17 09:35 Dose: 1 mg Furosemide (Lasix) 40 mg PO DAILY [facility] Last Admin: 05/25/17 13:45 Dose: Not Given Multivitamins (Hexavitamin) 1 tab PO DAILY [facility] Last Admin: 05/25/17 09:35 Dose: 1 tab Pantoprazole Sodium (Protonix Ec Tab) 20 mg PO DAILY [facility] Last Admin: 05/25/17 09:34 Dose: 20 mg Rosuvastatin Calcium (Crestor) 20 mg PO HS [facility] Last Admin: 05/24/17 22:07 Dose: 20 mg Sacubitril/Valsartan (Entresto 24 Mg-26 Mg) 1 tab PO DAILY [facility] Last Admin: 05/25/17 09:34 Dose: 1 tab Fluticasone/Salmeterol (Advair Diskus 100/50) 1 puff INH RQ12 [facility] Last Admin: 05/25/17 11:14 Dose: 1 puff Tamsulosin HCl (Flomax) 0.4 mg PO DAILY [facility] Last Admin: 05/25/17 09:35 Dose: 0.4 mg - Labs Labs: 05/25/17 09:01 05/25/17 09:01 - Head Exam Head Exam: NORMOCEPHALIC - Neck Exam Neck Exam: Normal Inspection - Respiratory Exam Respiratory Exam: NORMAL BREATHING PATTERN - Cardiovascular Exam Cardiovascular Exam: Irregular Rhythm - Extremities Exam Extremities Exam: Normal Inspection - Neurological Exam Neurological Exam: Alert, Oriented x3 Assessment and Plan (1) Ventricular tachyarrhythmia Assessment & Plan: No new episodes of VT, Continue Amiodarone. Follow-up as out patients. Status: Acute (2) Acute on chronic systolic (congestive) heart failure Assessment & Plan: Improved, Continue diuretics. Maintain electrolyte balance. Fluid and salt restricted diet. Status: Acute
[2017-05-25 17:23] VITALS: BP 106/61; PULSE 80; RESP 19; TEMP 97.6; O2SAT 100
--- NOTE | 2017-05-26 14:55 | CARD ---
APPROVED REPORT EKG Measurement Heart [id number] <Conclusion> Atrial fibrillation, Ventricular-paced rhythm Abnormal ECG
--- NOTE | 2017-05-26 22:43 | CARD ---
APPROVED REPORT EKG Measurement Heart [id number] <Conclusion> Ventricular-paced rhythm Abnormal ECG
== END 2017-05-25 17:24 | disposition home or self-care (01) | DRG 308 ==
LOC: C.ER 11:27 → C.9I 12:27
PROVIDERS: ADMIT Hospitalist; ATTEND Hospitalist
DX: I47.2 Ventricular tachycardia (principal); I50.23 Acute on chronic systolic (congestive) heart failure; I11.0 Hypertensive heart disease with heart failure; I25.5 Ischemic cardiomyopathy; J44.9 Chronic obstructive pulmonary disease, unspecified; I25.10 Atherosclerotic heart disease of native coronary artery without angina pectoris; J98.11 Atelectasis; I45.81 Long QT syndrome; I48.91 Unspecified atrial fibrillation; E78.00 Pure hypercholesterolemia, unspecified; N40.0 Benign prostatic hyperplasia without lower urinary tract symptoms; H40.9 Unspecified glaucoma; Z95.810 Presence of automatic (implantable) cardiac defibrillator; Z95.1 Presence of aortocoronary bypass graft; Z79.82 Long term (current) use of aspirin; Z86.010 Personal history of colon polyps; I25.2 Old myocardial infarction; Z87.891 Personal history of nicotine dependence; Z95.5 Presence of coronary angioplasty implant and graft